=== PATIENT | male | born 1965 | race Caucasian/White ===

== ENCOUNTER → 2017-08-24 11:16 | Emergency (ER) | payer OTHER ==
[~2017-08-24 11:16] MED LIST: LORazepam INJ* 2 MG/ML 1 ML VIAL IV ONE; Meclizine TAB* 12.5 MG PO ONE; Ondansetron INJ* 2 MG/ML VIAL IV ONE
--- NOTE | 2017-08-24 12:32 | RAD ---
HISTORY: Weakness COMPARISONS: December 14, 2016 VIEWS: 1: frontal portable view of the chest at 12:11 PM FINDINGS: LINES AND TUBES: None. CARDIOMEDIASTINAL SILHOUETTE: The cardiomediastinal silhouette is normal for portable technique. PLEURA: The costophrenic angles are sharp. No pleural abnormalities are noted. LUNG PARENCHYMA: The lungs are clear. ABDOMEN: The upper abdomen is clear. There is no subphrenic gas. BONES AND SOFT TISSUES: No bone or soft tissue abnormalities are noted. IMPRESSION: NO ACTIVE CARDIOPULMONARY DISEASE.
[2017-08-24 12:38] LABS: Hematocrit 44 % (42-52); Mean Corpuscular HGB Conc 34 g/dl (31-36); Mean Corpuscular Hemoglobin 29 pg (27-31); Mean Corpuscular Volume 84 fL (80-94); Mean Platelet Volume 8 um3 (7.4-10.4); Red Blood Count 5.26 10^6/ul (4.0-5.4); Red Cell Distribution Width 13 % (10.5-15); White Blood Count 6.9 10^3/ul (3.5-10.8)
--- NOTE | 2017-08-24 12:40 | RAD ---
HISTORY: Vertigo COMPARISONS: None TECHNIQUE: Multiple contiguous axial CT scans were obtained of the head without intravenous contrast. FINDINGS: HEMORRHAGE/INFARCT: There is no hemorrhage or acute infarct. MASSES/SHIFT: There is no mass or shift. EXTRA-AXIAL SPACES: There are no extra-axial fluid collections. SULCI AND VENTRICLES: The sulci and ventricles are normal in size and position for the patient's stated age. CEREBRUM: There are no focal parenchymal abnormalities. BRAINSTEM: There are no focal parenchymal abnormalities. CEREBELLUM: There are no focal parenchymal abnormalities. VESSELS: The vessels are grossly normal. PARANASAL SINUSES: The paranasal sinuses are clear. ORBITS: The orbits are unremarkable. BONES AND SOFT TISSUE: No bone or soft tissue abnormalities are noted. OTHER: None IMPRESSION: NO ACUTE INTRACRANIAL PATHOLOGY.
[2017-08-24 12:54] LABS: Albumin 4.6 g/dL (3.2-5.2); BUN/Creatinine Ratio 11.7 (8-20); Calcium 9.9 mg/dL (8.6-10.3); EGFR African American 89.5 (>60); EGFR Non-African American 69.6 (>60); Globulin 2.6 g/dL (2-4); Magnesium 2.2 mg/dL (1.9-2.7); Potassium 4.2 mmol/L (3.5-5.0); Total Bilirubin 0.3 mg/dL (0.2-1.0); Total Protein 7.2 g/dL (6.4-8.9)
[2017-08-24] MEDS: NS 0.9% 1000 ML* 2,000 ML IV ONE (13:14)
[2017-08-24 13:22] LABS: TSH (Thyroid Stimulating Horm) 2.21 mcIU/mL (0.34-5.60)
[2017-08-24 13:45] LABS: Urine Bacteria Absent (Absent); Urine Bilirubin Negative (Negative); Urine Glucose Negative (Negative); Urine Nitrite Negative (Negative)
--- NOTE | 2017-08-24 14:39 | ED ---
Ro Burr Nilda, scribed for Antonio Novak MD on 08/24/17 at 1208 . Syncope/Near Syncope - HPI Summary HPI Summary: This patient is a 52 year old M presenting to [facility] with a chief complaint of near syncope (3x, lasting 3 minutes) while sitting at work today. The patient rates the pain 0/10 in severity. Symptoms aggravated by movement and alleviated by rest. During near-syncopal episodes patient states that he saw stars, knees felt like rubber, and that the room was spinning. Patient currently reports feeling tremulous and ringing in the ears. Patient denies SOB, palpitations, CP, abd pain, LE pain, back pain, neck pain, burning with urination, sinus pressure, and ear pain. The is present at 1430 and states the patient only ate one meal yesterday. He states he did not drink as much as he should have either. He has not been feeling ill otherwise. The patient denies change in speech, swallowing, denies focal weakness or numbness. - History Of Current Complaint Chief Complaint: EDDizziness Time Seen by Provider: 08/24/17 11:49 Hx Obtained From: Patient Onset/Duration: Sudden Onset, Resolved Timing: Constant Activity At Onset: At Rest Associated Head Trauma: No Aggravating Factor(s): Exertion Alleviating Factor(s): Rest Associated Signs And Symptoms: Other - states that he saw stars, knees felt like rubber, and that the room was spinning. Patient currently reports feeling tremulous and ringing in the ears. Patient denies SOB, palpitations, CP, abd pain, LE pain, back pain, burning w urination, sinus pressure, and ear pain. - Allergies/Home Medications Allergies/Adverse Reactions: Allergies Allergy/AdvReac Type Severity Reaction Status Date / Time No Known Allergies Allergy Verified 05/09/16 11:08 PMH/Surg Hx/FS Hx/Imm Hx Endocrine/Hematology History: Denies: Hx Diabetes, Hx Thyroid Disease Cardiovascular History: Reports: Hx Hypertension - stopped meds in 2013 but may need to revisit the issues Respiratory History: Denies: Hx Asthma, Hx Chronic Obstructive Pulmonary Disease (COPD) GI History: Denies: Hx Ulcer Musculoskeletal History: Reports: Hx Arthritis, Other Musculoskeletal History - DDD cervical and thoracic spine Neurological History: Reports: Other Neuro Impairments/Disorders - HX OF DDD - Surgical History Surgery Procedure, Year, and Place: Rhinoplasty. Tonsillectomy Infectious Disease History: No Infectious Disease History: Denies: Hx Clostridium Difficile, Hx Hepatitis, Hx Human Immunodeficiency Virus (HIV), Hx of Known/Suspected MRSA, Hx Shingles, Hx Tuberculosis, Hx Known/ Suspected VRE, Hx Known/Suspected VRSA, History Other Infectious Disease, Traveled Outside the [place] in Last 30 Days - Family History Known Family History: Positive: Cardiac Disease, Other - cancer - Social History Occupation: Employed Full-time Alcohol Use: Rare Substance Use Type: Reports: None Smoking Status (MU): Current Every Day Smoker Type: Smokeless Tobacco Amount Used/How Often: 1/2 tin per day Review of Systems Positive: Other - ringing in ears; negative ear pain, sinus pressure Negative: Palpitations, Chest Pain Negative: Shortness Of Breath Negative: Abdominal Pain Negative: burning Positive: Other - knees weak, tremulous;negative LE pain, back pain, neck pain Neurological: Other - room spinning, saw stars Positive: Syncope - near syncope All Other Systems Reviewed And Are Negative: Yes Physical Exam Triage Information Reviewed: Yes Vital Signs On Initial Exam: Initial Vitals Temp Pulse Resp BP Pulse Ox 97.5 F 95 17 150/93 95 08/24/17 11:19 08/24/17 11:19 08/24/17 11:19 08/24/17 11:19 08/24/17 11:19 Vital Signs Reviewed: Yes Appearance: Positive: Well-Appearing, No Pain Distress Skin: Positive: Warm, Skin Color Reflects Adequate Perfusion Head/Face: Positive: Normal Head/Face Inspection Eyes: Positive: EOMI ENT: Positive: Pharynx normal Respiratory/Lung Sounds: Positive: Clear to Auscultation, Breath Sounds Present Cardiovascular: Positive: RRR. Negative: Murmur Abdomen Description: Positive: Nontender Musculoskeletal: Positive: Strength/ROM Intact Neurological: Positive: Sensory/Motor Intact, Alert, Oriented to Person Place, Time, CN Intact II-III, Normal Gait, Finger to Nose - nml, Speech Normal, Other - with position change the patient gets vertigo, but no nystagmus seen Psychiatric: Positive: Anxious - Eladio Coma Scale Coma Scale Total: 15 Diagnostics - Vital Signs Vital Signs Temp Pulse Resp BP Pulse Ox 08/24/17 11:19 97.5 F 95 17 150/93 95 - Laboratory Result Diagrams: 08/24/17 12:20 08/24/17 12:20 Lab Statement: Any lab studies that have been ordered have been reviewed, and results considered in the medical decision making process. - Radiology CXR Radiology Interpretation Completed By: Radiologist - CXR, per radiologist, reveals no active cardiopulmonary disease. ED physician has reviewed this report and agrees. - CT Brain CT Interpretation Completed By: Radiologist - CT Brain, per radiologist, reveals no acute intracranial pathology. ED physician has reviewed this radiology report and agrees. - EKG 1232 Cardiac Rate: NL EKG Rhythm: Sinus Rhythm - 96 bpm EKG Interpretation: nl HI, QRS, QT, T wave flat EKG Comparison: No Significant Change - compared to 07/30/15 Re-Evaluation - Re-Evaluation First Eval Re-Evaluation Time: 14:36 Change: Improved Comment: The patient reports he feelsmuch better. He is able to change positions without having the room spin now, and he is walking ot bathroom after meclizine and hydration. he is feeling much better and states he is ready to go home. Course/Dx Assessment/Plan: This patient is a 52 year old M presenting to [facility] with a chief complaint of near syncope (3x, lasting 3 minutes) while sitting at work today. The patient rates the pain 0/10 in severity. Symptoms aggravated by movement and alleviated by rest. During near-syncopal episodes patient states that he saw stars, knees felt like rubber, and that the room was spinning. Patient currently reports feeling tremulous and ringing in the ears. Patient denies SOB, palpitations, CP, abd pain, LE pain, back pain, neck pain, burning with urination, sinus pressure, and ear pain. Pending EKG, CXR, CT Brain, and labs. CXR and CT Brain, per radiologist, reveal NAD. An EKG reveals NSR 96 bpm, nl HI, QRS, QT, T wave flat, unchanged compared to 07/30/15. - Diagnoses Provider Diagnoses: Vertigo, Orthostasis Discharge - Discharge Plan Condition: Good Disposition: HOME Prescriptions: Meclizine HCl [Meclizine 25] 25 mg PO BID #14 tab Patient Education Materials: Dehydration (ED), Vertigo (ED), Hypertension (ED) Referrals: Thang Diaz MD [Primary Care Provider] - 2 Days The documentation as recorded by the scribe, Starr,Zenaida accurately reflects the service I personally performed and the decisions made by me, Antonio Novak MD.
[2017-08-24 14:52] VITALS: BP 138/80
== END | disposition home or self-care (01) ==
LOC: ED 11:16
DX: R42 Dizziness and giddiness (principal); I95.1 Orthostatic hypotension; R55 Syncope and collapse
CPT/HCPCS: 36415; 70450; 71010; 80053; 81003; 81015; 83605; 83735; 83880; 84443; 84484; 85025; 93005; 96374; 96375; 99282; A9270-GY; J2060; J2405

== ENCOUNTER 2017-11-06 10:24 | Emergency (ER) | payer OTHER ==
[2017-11-06] MEDS ORDERED: Aspirin Low Dose CHEW TAB* 81 MG PO ONE (10:59)
[2017-11-06 11:21] LABS: ABS Basophils 0.1 10^3/ul (0-0.2); ABS Eosinophils 0.2 10^3/ul (0-0.6); ABS Lymphocytes 1.2 10^3/ul (1.0-4.8); ABS Monocytes 0.4 10^3/ul (0-0.8); ABS Neutrophils 3.2 10^3/ul (1.5-7.7); ABS Nucleated RBC 0 10^3/ul; Eosinophil % 3.3 % (0-6); Hematocrit 37 % (42-52); Hemoglobin 12.5 g/dl (14.0-18.0); Lymphocyte % 23.7 % (25-47); Mean Corpuscular HGB Conc 34 g/dl (31-36); Mean Corpuscular Hemoglobin 28 pg (27-31); Mean Corpuscular Volume 82 fL (80-94); Mean Platelet Volume 8 um3 (7.4-10.4); Nucleated Red Blood Cells % 0; Platelet Count 213 10^3/ul (150-450); Red Blood Count 4.48 10^6/ul (4.0-5.4); Red Cell Distribution Width 14 % (10.5-15)
--- NOTE | 2017-11-06 11:25 | RAD ---
INDICATION: Chest pain COMPARISON: August 24, 2017 TECHNIQUE: An AP portable view obtained at 1115 hours is submitted. FINDINGS: Bones/Soft Tissues: There are no acute bony findings. Cardiomediastinal: The cardiomediastinal silhouette is normal. Lungs: There are no infiltrates. Pleura: There are no pleural effusions. Other: None IMPRESSION: NO ACTIVE DISEASE.
[2017-11-06 11:37] LABS: INR 0.9 (0.77-1.02)
[2017-11-06 11:43] LABS: EGFR Non-African American 75.8 (>60)
--- NOTE | 2017-11-06 12:56 | RAD ---
INDICATION: Headaches. Weakness. COMPARISON: None TECHNIQUE: Noncontrast axial source images were acquired from the skull base to the vertex. FINDINGS: Ventricles/sulci: The ventricles and cisterns are normal in size and configuration for age. Brain parenchyma: There is no focal parenchymal finding, evidence of intracranial mass, or intracranial mass effect. Intracranial hemorrhage:None. Extra-axial spaces: There are no abnormal extra axial fluid collections or evidence of extra-axial mass. Calvarium: There is no calvarial fracture or other calvarial abnormality. Scalp: There is no evidence of scalp or extracalvarial soft tissue abnormality. Paranasal sinuses/mastoid: The paranasal sinuses and mastoid air cells are clear. Other: None. IMPRESSION: No acute intracranial findings
[2017-11-06 14:03] VITALS: BP 131/91
--- NOTE | 2017-11-07 10:54 | ED ---
Rowena Burr Edward, scribed for Antonio Arteaga MD on 11/06/17 at 1143 . HPI Chest Pain - HPI Summary HPI Summary: 52 y/o male presents to the ED c/o "gripping" pain at the R side of his chest that lasted minutes, that resolved, around 2 days ago. Currently the pt c/o R shoulder pain. Pt also c/o intermittent dizzy spells that have been going on for around 1 month. During these spells the pt's R eye would become blurry ( this occurred twice). - History of Current Complaint Chief Complaint: EDChestPainROMI Time Seen by Provider: 11/06/17 11:30 Hx Obtained From: Patient Onset/Duration: Started Days Ago, Resolved Timing: Lasting Minutes Pain Intensity: 6 Pain Scale Used: 0-10 Numeric Chest Pain Location: Right Lateral Character: Other: - gripping Aggravating Factor(s): Nothing Alleviating Factor(s): Nothing Associated Signs and Symptoms: Positive: Chest Pain, Dizziness, Other: - blurred vision - Allergy/Home Medications Allergies/Adverse Reactions: Allergies Allergy/AdvReac Type Severity Reaction Status Date / Time No Known Allergies Allergy Verified 11/06/17 10:28 PMH/Surg Hx/FS Hx/Imm Hx Previously Healthy: No Endocrine/Hematology History: Denies: Hx Diabetes, Hx Thyroid Disease Cardiovascular History: Reports: Hx Hypertension - stopped meds in 2013 but may need to revisit the issues Respiratory History: Denies: Hx Asthma, Hx Chronic Obstructive Pulmonary Disease (COPD) GI History: Denies: Hx Ulcer Musculoskeletal History: Reports: Hx Arthritis, Other Musculoskeletal History - DDD cervical and thoracic spine Neurological History: Reports: Other Neuro Impairments/Disorders - HX OF DDD - Surgical History Surgery Procedure, Year, and Place: Rhinoplasty. Tonsillectomy Infectious Disease History: No Infectious Disease History: Denies: Hx Clostridium Difficile, Hx Hepatitis, Hx Human Immunodeficiency Virus (HIV), Hx of Known/Suspected MRSA, Hx Shingles, Hx Tuberculosis, Hx Known/ Suspected VRE, Hx Known/Suspected VRSA, History Other Infectious Disease, Traveled Outside the [place] in Last 30 Days - Family History Known Family History: Positive: Cardiac Disease, Other - cancer - Social History Alcohol Use: Rare Substance Use Type: Reports: None Smoking Status (MU): Former Smoker Type: Smokeless Tobacco Amount Used/How Often: 1/2 tin per day Review of Systems Constitutional: Negative Positive: Blurred Vision - R eye ENT: Negative Positive: Chest Pain Respiratory: Negative Gastrointestinal: Negative Genitourinary: Negative Positive: Arthralgia - R shoulder pain Skin: Negative Neurological: Other - Dizziness Psychological: Normal All Other Systems Reviewed And Are Negative: Yes Physical Exam - Summary Physical Exam Summary: VITAL SIGNS: Reviewed. GENERAL: Patient is a well-developed and nourished male who is lying comfortable in the stretcher. Patient is not in any acute respiratory distress. HEAD AND FACE: No signs of trauma. No ecchymosis, hematomas or skull depressions. No sinus tenderness. EYES: PERRLA, EOMI x 2, No injected conjunctiva, no nystagmus. No photophobia. EARS: Hearing grossly intact. Ear canals and tympanic membranes are within normal limits. MOUTH: Oropharynx within normal limits. NECK: Supple, trachea is midline, no adenopathy, no JVD, no carotid bruit, no c- spine tenderness, neck with full ROM. No meningeal signs, no Kernig's or brudzinskis signs. CHEST: Symmetric, no tenderness at palpation LUNGS: Clear to auscultation bilaterally. No wheezing or crackles. CVS: Regular rate and rhythm, S1 and S2 present, no murmurs or gallops appreciated. ABDOMEN: Soft, non-tender. No signs of distention. No rebound no guarding, and no masses palpated. Bowel sounds are normal. EXTREMITIES: FROM in all major joints, no edema, no cyanosis or clubbing. NEURO: Alert and oriented x 3. No acute neurological deficits. Speech is normal and follows commands. SKIN: Dry and warm GCS: 15 (unless he states otherwise) Triage Information Reviewed: Yes Vital Signs On Initial Exam: Initial Vitals Temp Pulse Resp BP Pulse Ox 98.4 F 104 16 174/95 92 11/06/17 10:28 11/06/17 10:28 11/06/17 10:11/06/17 10:11/06/17 10:28 Vital Signs Reviewed: Yes Diagnostics - Vital Signs Vital Signs Temp Pulse Resp BP Pulse Ox 11/06/17 10:46 94 23 98 11/06/17 10:44 144/90 11/06/17 10:28 98.4 F 104 16 174/95 92 - Laboratory Lab Results: Lab Results 11/06/17 Range/Units 11:08 WBC 5.0 (3.5-10.8) 10^3/ul RBC 4.48 (4.0-5.4) 10^6/ul Hgb 12.5 L (14.0-18.0) g/dl Hct 37 L (42-52) % MCV 82 (80-94) fL MCH 28 (27-31) pg MCHC 34 (31-36) g/dl RDW 14 (10.5-15) % Plt Count 213 (150-450) 10^3/ul MPV 8 (7.4-10.4) um3 Neut % (Auto) 64.3 (38-83) % Lymph % (Auto) 23.7 L (25-47) % [place] % (Auto) 7.5 (1-9) % Eos % (Auto) 3.3 (0-6) % Baso % (Auto) 1.2 (0-2) % Absolute Neuts (auto) 3.2 (1.5-7.7) 10^3/ul Absolute Lymphs (auto) 1.2 (1.0-4.8) 10^3/ul Absolute Monos (auto) 0.4 (0-0.8) 10^3/ul Absolute Eos (auto) 0.2 (0-0.6) 10^3/ul Absolute Basos (auto) 0.1 (0-0.2) 10^3/ul Absolute Nucleated RBC 0 10^3/ul Nucleated RBC % 0 Result Diagrams: 11/06/17 11:08 11/06/17 11:08 Lab Statement: Any lab studies that have been ordered have been reviewed, and results considered in the medical decision making process. - Radiology CXR Xray Interpretation: No Acute Changes Radiology Interpretation Completed By: Radiologist - ED PHYSICIAN REVIEWS AND AGREES - CT BRAIN CT CT Interpretation: No Acute Changes CT Interpretation Completed By: Radiologist - EKG 1 EKG Interpretation: 10:32 - SR @ 96 BPM. Normal Smith. No STEMI. Chest Pain Course/Dx - Course Assessment/Plan: 52 y/o male presents to the ED c/o c/o "gripping" pain at the R side of his chest lasting minutes, that resolved, around 2 days ago. Currently the pt c/o R shoulder pain.Pt also c/o dizzy spells for around 1 month. During these spells the pt's R eye would become blurry (this occurred twice). CXR NEGATIVE. EKG - 10:32 - SR @ 96 BPM. Normal Smith. No STEMI. BRAIN CT negative. Test results are without significant abnormalities. Trop 1 and 2 negative. Therefore I have no suspicion for ACS. Head CT is negative. I did a head ct b/c she reported to have visual disturbances. Therefore the pt will be d /c home with f/u with pcp. The pt is hemodynamically stable, A&Ox3. - Chest Pain Differential Diagnosis/HQI/PQRI: Acute NV, ACS, Angina, CHF, Chest Wall, GI Disease - Diagnoses Provider Diagnoses: Atypical chest pain Discharge - Discharge Plan Condition: Stable Disposition: HOME Patient Education Materials: Chest Pain (ED) Referrals: Thang Diaz MD [Primary Care Provider] - 4 Days (PLEASE F/U IN 3-5 DAYS) The documentation as recorded by the Rowena dickinson Edward accurately reflects the service I personally performed and the decisions made by Chandler winn Walter, MD.
== END 2017-11-06 14:32 | disposition home or self-care (01) ==
LOC: ED 10:24
DX: R07.89 Other chest pain (principal); Z87.891 Personal history of nicotine dependence; I10 Essential (primary) hypertension
CPT/HCPCS: 36415; 70450; 71045; 80053; 82550; 82553; 83605; 83735; 83874; 83880; 84484; 85025; 85610; 85730; 87040; 93005; 99283; A9270-GY

== ENCOUNTER 2017-11-16 09:45 | Emergency (ER) | payer OTHER ==
[2017-11-16] MEDS ORDERED: NS 0.9% 1000 ML* 1,000 ML IV ONE (10:34)
[2017-11-16 11:21] LABS: ABS Basophils 0.1 10^3/ul (0-0.2); ABS Eosinophils 0.1 10^3/ul (0-0.6); ABS Lymphocytes 1.2 10^3/ul (1.0-4.8); ABS Monocytes 0.5 10^3/ul (0-0.8); ABS Neutrophils 4.4 10^3/ul (1.5-7.7); ABS Nucleated RBC 0 10^3/ul; Eosinophil % 1.7 % (0-6); Hematocrit 37 % (42-52); Hemoglobin 12.4 g/dl (14.0-18.0); Lymphocyte % 18.8 % (25-47); Mean Corpuscular HGB Conc 34 g/dl (31-36); Mean Corpuscular Hemoglobin 27 pg (27-31); Mean Corpuscular Volume 81 fL (80-94); Mean Platelet Volume 7 um3 (7.4-10.4); Nucleated Red Blood Cells % 0; Platelet Count 231 10^3/ul (150-450); Red Blood Count 4.57 10^6/ul (4.0-5.4); Red Cell Distribution Width 14 % (10.5-15); White Blood Count 6.3 10^3/ul (3.5-10.8)
--- NOTE | 2017-11-16 11:26 | RAD ---
Indication: RIGHT upper quadrant pain. Nausea, diarrhea. Comparison: December 29, 2014 CT. Technique: RIGHT upper quadrant ultrasound. Report: Appropriate direction flow documented in the portal and hepatic veins. 16.9 cm liver is increased in echogenicity. 3.5 x 3.8 x 3.8 cm irregular contour anechoic lesion devoid of intrinsic vascularity at the LEFT lateral hepatic segment is unchanged compared with the prior CT consistent with a benign cyst. No suspicious focal hepatic lesions evident. Negative for intrahepatic biliary dilatation. 4.0 mm common bile duct. Adequately distended gallbladder with normal 2.6 mm wall is without pathologic finding. Negative for sonographic Hernandez's sign. The pancreatic tail is partially obscured due to bowel gas with the visualized pancreas unremarkable. Negative for ascites. 10.3 x 5.1 x 5.0 cm RIGHT kidney is unremarkable. IMPRESSION: 1. Hepatic steatosis. Benign cyst at the LEFT lateral hepatic segment. 2. Negative for gallbladder pathology or biliary dilatation.
[2017-11-16 11:35] LABS: EGFR Non-African American 80.3 (>60)
--- NOTE | 2017-11-16 11:43 | RAD ---
INDICATION: Cough right-sided chest pain. COMPARISON: Comparison is made with the prior study from November 06, 2017. TECHNIQUE: Dual-energy PA and lateral views of the chest were obtained. FINDINGS: The heart is within normal limits in size. Mediastinal and hilar contours appear within normal limits. The lungs are underinflated. There are linear densities at the left lung base most consistent with atelectasis. The lungs are otherwise clear. No pleural effusion is seen. IMPRESSION: LEFT BASILAR SUBSEGMENTAL ATELECTASIS. THE LUNGS ARE OTHERWISE CLEAR.
[2017-11-16] MEDS ORDERED: Ondansetron INJ* 2 MG/ML VIAL IV ONE (13:02)
[2017-11-16 13:12] LABS: Urine Appearance Clear; Urine Blood Negative (Negative); Urine Color Straw; Urine Ketones Negative (Negative); Urine Protein Negative (Negative); Urine Specific Gravity 1.005 (1.010-1.030); Urine Urobilinogen Negative (Negative)
--- NOTE | 2017-11-16 14:27 | ED ---
Julisa Burr Julia, scribed for Malachi Salas MD on 11/16/17 at 1016 . Abdominal Pain/Male - HPI Summary HPI Summary: This patient is a 52 year old M presenting to [facility] with a chief complaint of abdominal pain with n/v/d since last night at midnight with R sided chest pain. Patient reports productive cough with yellow mucous for a week. Patient denies abdominal pain and fever. The patient rates the pain 2/10 in severity. Pt reports hx of interrmittent blurred vision in R eye with dizziness. Patient has history of PTSD and panic attacks. Pt was seen in ED last week for similar chest pain. Pt has multiple sick contacts. - History of Current Complaint Chief Complaint: EDNauseaVomitDiarrh Stated Complaint: N/V/PAIN IN RT CHEST Hx Obtained From: Patient Onset/Duration: Lasting Hours Timing: Constant Pain Intensity: 2 Pain Scale Used: 0-10 Numeric Radiates to: Other - R sided chest Associated Signs And Symptoms: Positive: Nausea, Vomiting, Diarrhea - Allergies/Home Medications Allergies/Adverse Reactions: Allergies Allergy/AdvReac Type Severity Reaction Status Date / Time No Known Allergies Allergy Verified 11/06/17 10:28 PMH/Surg Hx/FS Hx/Imm Hx Endocrine/Hematology History: Denies: Hx Diabetes, Hx Thyroid Disease Cardiovascular History: Reports: Hx Angina, Hx Hypertension - stopped meds in 2013 but may need to revisit the issues Respiratory History: Denies: Hx Asthma, Hx Chronic Obstructive Pulmonary Disease (COPD) GI History: Denies: Hx Ulcer Musculoskeletal History: Reports: Hx Arthritis, Hx Scoliosis, Other Musculoskeletal History - DDD cervical and thoracic spine Neurological History: Reports: Other Neuro Impairments/Disorders - HX OF DDD - Surgical History Surgery Procedure, Year, and Place: Rhinoplasty. Tonsillectomy Infectious Disease History: No Infectious Disease History: Denies: Hx Clostridium Difficile, Hx Hepatitis, Hx Human Immunodeficiency Virus (HIV), Hx of Known/Suspected MRSA, Hx Shingles, Hx Tuberculosis, Hx Known/ Suspected VRE, Hx Known/Suspected VRSA, History Other Infectious Disease, Traveled Outside the [place] in Last 30 Days - Family History Known Family History: Positive: Cardiac Disease, Other - cancer - Social History Alcohol Use: Rare Substance Use Type: Reports: None Smoking Status (MU): Former Smoker Type: Smokeless Tobacco Amount Used/How Often: 1/2 tin per day Review of Systems Positive: Fever Positive: Chest Pain - r sided Positive: Cough Positive: Vomiting, Diarrhea, Nausea. Negative: Abdominal Pain All Other Systems Reviewed And Are Negative: Yes Physical Exam - Summary Physical Exam Summary: Appearance: Well-appearing, Well-nourished Skin: Warm, Dry, No rash Eyes: Normal, PERRL, EOMI, sclera anicteric ENT: Normal, non hemorrhagic, no exudates, R endoscopic exam is normal Neck: Supple, nontender Respiratory: Clear to auscultation Cardiovascular: S1, S2, no murmur, no rub, no gallop Abdomen: Soft, RUQ tenderness, no organomegaly Bowel sounds: Present Musculoskeletal: Normal, Strength/ROM Intact, no edema, pulses symmetrical Neurological: Normal, A&Ox3, cranial nerves II-XII WNL, follows commands, gait not tested, sensation intact to pin and light touch Psychiatric: affect normal slightly anixous, dressed appropriately, judgment intact, Triage Information Reviewed: Yes Vital Signs On Initial Exam: Initial Vitals Temp Pulse Resp BP Pulse Ox 97.5 F 100 20 150/96 97 11/16/17 09:50 11/16/17 09:50 11/16/17 09:50 11/16/17 09:50 11/16/17 09:50 Vital Signs Reviewed: Yes Diagnostics - Vital Signs Vital Signs Temp Pulse Resp BP Pulse Ox 11/16/17 09:50 97.5 F 100 20 150/96 97 - Laboratory Lab Results: Lab Results 11/16/17 11/16/17 11/16/17 Range/Units 10:57 11:10 11:10 WBC 6.3 (3.5-10.8) 10^3/ul RBC 4.57 (4.0-5.4) 10^6/ul Hgb 12.4 L (14.0-18.0) g/dl Hct 37 L (42-52) % MCV 81 (80-94) fL MCH 27 (27-31) pg MCHC 34 (31-36) g/dl RDW 14 (10.5-15) % Plt Count 231 (150-450) 10^3/ul MPV 7 L (7.4-10.4) um3 Neut % (Auto) 70.9 (38-83) % Lymph % (Auto) 18.8 L (25-47) % [place] % (Auto) 7.6 (1-9) % Eos % (Auto) 1.7 (0-6) % Baso % (Auto) 1.0 (0-2) % Absolute Neuts (auto) 4.4 (1.5-7.7) 10^3/ul Absolute Lymphs (auto) 1.2 (1.0-4.8) 10^3/ul Absolute Monos (auto) 0.5 (0-0.8) 10^3/ul Absolute Eos (auto) 0.1 (0-0.6) 10^3/ul Absolute Basos (auto) 0.1 (0-0.2) 10^3/ul Absolute Nucleated RBC 0 10^3/ul Nucleated RBC % 0 Sodium 134 (133-145) mmol/L Potassium 4.2 (3.5-5.0) mmol/L Chloride 101 (101-111) mmol/L Carbon Dioxide 27 (22-32) mmol/L Anion Gap 6 (2-11) mmol/L BUN 13 (6-24) mg/dL Creatinine 0.98 (0.67-1.17) mg/dL Est GFR ( Amer) 103.3 (>60) Est GFR (Non-Af Amer) 80.3 (>60) BUN/Creatinine Ratio 13.3 (8-20) Glucose 110 H (70-100) mg/dL Calcium 9.6 (8.6-10.3) mg/dL Total Bilirubin 0.30 (0.2-1.0) mg/dL AST 15 (13-39) U/L ALT 21 (7-52) U/L Alkaline Phosphatase 160 H (34-104) U/L Total Protein 6.9 (6.4-8.9) g/dL Albumin 4.4 (3.2-5.2) g/dL Globulin 2.5 (2-4) g/dL Albumin/Globulin Ratio 1.8 (1-3) Lipase 37 (11.0-82.0) U/L Urine Color Urine Appearance Urine pH (5-9) Ur Specific [place] (1.010-1.030) Urine Protein (Negative) Urine Ketones (Negative) Urine Blood (Negative) Urine Nitrate (Negative) Urine Bilirubin (Negative) Urine Urobilinogen (Negative) Ur Leukocyte Esterase (Negative) Urine Glucose (Negative) Influenza A (Rapid) Negative (Negative) Influenza B (Rapid) Negative (Negative) 11/16/17 Range/Units 12:53 WBC (3.5-10.8) 10^3/ul RBC (4.0-5.4) 10^6/ul Hgb (14.0-18.0) g/dl Hct (42-52) % MCV (80-94) fL MCH (27-31) pg MCHC (31-36) g/dl RDW (10.5-15) % Plt Count (150-450) 10^3/ul MPV (7.4-10.4) um3 Neut % (Auto) (38-83) % Lymph % (Auto) (25-47) % [place] % (Auto) (1-9) % Eos % (Auto) (0-6) % Baso % (Auto) (0-2) % Absolute Neuts (auto) (1.5-7.7) 10^3/ul Absolute Lymphs (auto) (1.0-4.8) 10^3/ul Absolute Monos (auto) (0-0.8) 10^3/ul Absolute Eos (auto) (0-0.6) 10^3/ul Absolute Basos (auto) (0-0.2) 10^3/ul Absolute Nucleated RBC 10^3/ul Nucleated RBC % Sodium (133-145) mmol/L Potassium (3.5-5.0) mmol/L Chloride (101-111) mmol/L Carbon Dioxide (22-32) mmol/L Anion Gap (2-11) mmol/L BUN (6-24) mg/dL Creatinine (0.67-1.17) mg/dL Est GFR ( Amer) (>60) Est GFR (Non-Af Amer) (>60) BUN/Creatinine Ratio (8-20) Glucose (70-100) mg/dL Calcium (8.6-10.3) mg/dL Total Bilirubin (0.2-1.0) mg/dL AST (13-39) U/L ALT (7-52) U/L Alkaline Phosphatase (34-104) U/L Total Protein (6.4-8.9) g/dL Albumin (3.2-5.2) g/dL Globulin (2-4) g/dL Albumin/Globulin Ratio (1-3) Lipase (11.0-82.0) U/L Urine Color Straw Urine Appearance Clear Urine pH 7.0 (5-9) Ur Specific [place] 1.005 L (1.010-1.030) Urine Protein Negative (Negative) Urine Ketones Negative (Negative) Urine Blood Negative (Negative) Urine Nitrate Negative (Negative) Urine Bilirubin Negative (Negative) Urine Urobilinogen Negative (Negative) Ur Leukocyte Esterase Negative (Negative) Urine Glucose Negative (Negative) Influenza A (Rapid) (Negative) Influenza B (Rapid) (Negative) Result Diagrams: 11/16/17 11:10 11/16/17 11:10 Lab Statement: Any lab studies that have been ordered have been reviewed, and results considered in the medical decision making process. - Radiology CXR Radiology Interpretation Completed By: Radiologist - LEFT BASILAR SUBSEGMENTAL ATELECTASIS. THE LUNGS ARE OTHERWISE CLEAR. ED Physician has reviewed this report. - Additional Comments Diagnostic Additional Comments: A Gallbladder US reveals 1. Hepatic steatosis. Benign cyst at the LEFT lateral hepatic segment. 2. Negative for gallbladder pathology or biliary dilatation. ED Physician has reviewed this report. Abdominal Pain Fem Course/Dx - Course Course Of Treatment: This patient presents with abdominal pain with n/v/d with R sided chest pain. Patient reports productive cough with yellow mucous for a week. . Patient has history of PTSD and panic attacks. Pt was seen in ED last week for similar chest pain. CXR reveals no acute concern. Gallbladder US is unremarkable. Flu swab is negative. Bloodwork is unremarkable. Pt given Zofran due to complaints of dizziness. - Diagnoses Provider Diagnoses: Gastritis due to nonsteroidal anti-inflammatory drug (NSAID) Discharge - Discharge Plan Condition: Good Disposition: HOME Discharge Disposition Comment: home Prescriptions: Ondansetron ODT TAB* [Zofran 4 MG Odt TAB*] 4 mg PO Q6H PRN #20 tab.odt MDD 4 PRN Reason: Nausea/Vomiting Patient Education Materials: Gastritis (DC) Referrals: Thang Diaz MD [Primary Care Provider] - The documentation as recorded by the Julisa dickinson Julia accurately reflects the service I personally performed and the decisions made by me, Malachi Salas MD.
[2017-11-16 14:58] VITALS: BP 138/87
== END 2017-11-16 14:57 | disposition home or self-care (01) ==
LOC: ED 09:45
DX: K29.70 Gastritis, unspecified, without bleeding (principal); R11.2 Nausea with vomiting, unspecified; Z87.891 Personal history of nicotine dependence
CPT/HCPCS: 36415; 71046; 76705; 80053; 81003; 83690; 85025; 87502; 96374; 99283; J2405

== ENCOUNTER 2018-04-09 14:47 | Emergency (ER) | payer OTHER ==
[2018-04-09] MEDS ORDERED: NS 0.9% 1000 ML* 1,000 ML IV ONE (15:20)
[2018-04-09] MEDS ORDERED: Ketorolac INJ* 30 MG/ML 1 ML VIAL IV ONE (15:20)
[2018-04-09] MEDS ORDERED: Acetaminophen TAB* 325 MG PO ONE (15:20)
--- NOTE | 2018-04-09 15:57 | RAD ---
Indication: Headache. CT of the brain was performed without IV contrast. Ventricular structures are midline. No midline shift is noted. The extra-axial spaces are unremarkable. There is no evidence of intracranial mass or hemorrhage. No other high or low density lesions are identified. Mastoid air cells and paranasal sinuses are otherwise unremarkable. No changes noted since previous exam November 06, 2017. IMPRESSION: There is no evidence of intracranial mass or hemorrhage is noted.
--- NOTE | 2018-04-09 15:59 | RAD ---
Indication: Neck pain. CT of the cervical spine was obtained in the axial plane. Sagittal and coronal reconstructed images were obtained. Mastoid air cells and paranasal sinuses are unremarkable. Degenerative changes of the atlantoaxial joint is noted. Vertebral bodies appear normal in height. Straightening of the normal lordosis is noted. At C2-C3 and C3-C4 there is no disc protrusion. No central foraminal stenosis is noted. At C4-C5 no focal protrusion is noted. No central foraminal stenosis noted. At C5-C6 spondylitic ridge flattens the thecal sac. Right uncovertebral joint hypertrophy narrows the right foramen. At C6-C7 and C7-T1 the disc space appears normal. IMPRESSION: No fracture noted. Degenerative disc disease noted at C5-C6. Right uncovertebral joint hypertrophy narrows the right foramen.
[2018-04-09] MEDS ORDERED: Morphine VIAL* 4 MG/ML VIAL (1 ml vial) IV ONE (16:33)
[2018-04-09] MEDS ORDERED: Ondansetron INJ* 2 MG/ML VIAL IV ONE (16:33)
--- NOTE | 2018-04-09 16:39 | ED ---
Elle Burr SooYoung, scribed for Ras Coker MD on 04/09/18 at 1517 . Neck Pain - HPI Summary HPI Summary: A 53 y/o M presents to ED with c/o acute on chronic neck pain, worsening yesterday afternoon. Pt went to [facility], where he received a steroid shot. Associated sx: JACKSON. Cold compress, massage chair did not alleviate the neck pain. Pt is a . Pert PMHx: PTSD, 20% disability of neck. Pt is waiting for imaging and lab results from his PCP and a nuero referral, scheduled to see PCP on April 26. EMG test In October at [place]. Pt takes pain medication for his lower back. - History of Current Complaint Chief Complaint: EDNeckComplaint Stated Complaint: HEADACHE/NECK PAIN Time Seen by Provider: 04/09/18 15:05 Hx Obtained From: Patient Timing: Constant, Lasting Hours Onset/Duration: Started days ago - yesterday, acute on chronic, Still Present Severity Currently: Severe Pain Intensity: 8 Pain Scale Used: 0-10 Numeric Associated Signs & Symptoms: Positive: Headache - Allergies/Home Medications Allergies/Adverse Reactions: Allergies Allergy/AdvReac Type Severity Reaction Status Date / Time No Known Allergies Allergy Verified 04/09/18 14:56 Home Medications: Home Medications Carisoprodol TAB* [Soma TAB*] 350 mg PO Q6H PRN 04/09/18 [History Confirmed 10/27] Escitalopram Oxalate [Lexapro] 20 mg PO DAILY 04/09/18 [History Confirmed ] Ranitidine TAB (NF) [Zantac TAB (NF)] 150 mg PO DAILY 04/09/18 [History Confirmed 04/09/18] amLODIPine TAB* [Norvasc 5 mg TAB*] 10 mg PO DAILY 04/09/18 [History Confirmed 04/09/18] PMH/Surg Hx/FS Hx/Imm Hx Previously Healthy: No Endocrine/Hematology History: Denies: Hx Diabetes, Hx Thyroid Disease Cardiovascular History: Reports: Hx Angina, Hx Hypertension - stopped meds in 2013 but may need to revisit the issues Respiratory History: Denies: Hx Asthma, Hx Chronic Obstructive Pulmonary Disease (COPD) GI History: Denies: Hx Ulcer Musculoskeletal History: Reports: Hx Arthritis, Hx Scoliosis, Other Musculoskeletal History - DDD cervical and thoracic spine Neurological History: Reports: Other Neuro Impairments/Disorders - HX OF DDD Psychiatric History: Reports: Hx Post Traumatic Stress Disorder - Surgical History Surgery Procedure, Year, and Place: Rhinoplasty. Tonsillectomy Infectious Disease History: No Infectious Disease History: Denies: Hx Clostridium Difficile, Hx Hepatitis, Hx Human Immunodeficiency Virus (HIV), Hx of Known/Suspected MRSA, Hx Shingles, Hx Tuberculosis, Hx Known/ Suspected VRE, Hx Known/Suspected VRSA, History Other Infectious Disease, Traveled Outside the [place] in Last 30 Days - Family History Known Family History: Positive: Cardiac Disease, Other - cancer - Social History Occupation: Employed Full-time Lives: With Family Alcohol Use: Rare Hx Substance Use: No Substance Use Type: Reports: None Hx Tobacco Use: Yes Smoking Status (MU): Former Smoker Type: Smokeless Tobacco Amount Used/How Often: 1/2 tin per day Review of Systems Negative: Fever Positive: Arthralgia - neck pain Positive: Headache All Other Systems Reviewed And Are Negative: Yes Physical Exam - Summary Physical Exam Summary: General: well-appearing, moderate pain distress Skin: warm, color reflects adequate perfusion, dry Head: normal Eyes: EOMI, TARA ENT: normal Neck: supple, nontender Respiratory: CTA, breath sounds present Cardiovascular: RRR Abdomen: soft, nontender Bowel: present Musculoskeletal: tenderness to low neck, strength/ROM intact Neurological: sensory/motor intact, A&O x3 Psychological: affect/mood appropriate Triage Information Reviewed: Yes Vital Signs On Initial Exam: Initial Vitals Temp Pulse Resp BP Pulse Ox 98.2 F 109 18 133/93 93 04/09/18 14:56 04/09/18 14:56 04/09/18 14:56 04/09/18 14:56 04/09/18 14:56 Vital Signs Reviewed: Yes Diagnostics - Vital Signs Vital Signs Temp Pulse Resp BP Pulse Ox 04/09/18 14:56 98.2 F 109 18 133/93 93 - Laboratory Lab Statement: Any lab studies that have been ordered have been reviewed, and results considered in the medical decision making process. - CT C-SPINE CT Interpretation: No Acute Changes - IMPRESSION: No fracture noted. Degenerative disc disease noted at C5-C6. Right uncovertebral joint hypertrophy narrows the right foramen. ED physician has reviewed this report and agrees. CT Interpretation Completed By: Radiologist BRAIN CT Interpretation: No Acute Changes - IMPRESSION: There is no evidence of intracranial mass or hemorrhage is noted. ED physician has reviewed this report and agrees. CT Interpretation Completed By: Radiologist Re-Evaluation - Re-Evaluation 1 Re-Evaluation Time: 16:30 Change: Improved Comment: Pain is slightly decreased after pain medication. There is no neuro deficit. Neck Course/Dx - Course Course Of Treatment: DISCUSSED RESULTS WITH THE PATIENT. [facility] HE DECLINED PAIN MED RX. NO NEUROLOGIC DEFICIT. RETURN IF WORSE. - Diagnoses Provider Diagnoses: Chronic neck pain, Acute neck pain Discharge - Sign-Out/Discharge Documenting (check all that apply): Discharge/Admit/Transfer - Discharge Plan Condition: Stable Disposition: HOME Patient Education Materials: Acute Neck Pain (ED), Chronic Neck Pain (DC) Referrals: Thang Diaz MD [Primary Care Provider] - Roberto Barlow MD [Medical Doctor] - Additional Instructions: FOLLOW UP WITH YOUR [facility] DO[facility]UROSURGERY. GET RECHECKED FOR ANY WORSENING OF YOUR CONDITION; PAIN, WEAKNESS, NUMBNESS OR QUESTIONS OR CONCERNS. - Billing Disposition and Condition Condition: STABLE Disposition: Home The documentation as recorded by the Elle dickinson SooYoung accurately reflects the service I personally performed and the decisions made by me, Ras Coker MD.
[2018-04-09 17:43] VITALS: BP 135/83
== END 2018-04-09 17:42 | disposition home or self-care (01) ==
LOC: ED 14:47
DX: M54.2 Cervicalgia (principal); G89.29 Other chronic pain; R51 Headache; Z87.891 Personal history of nicotine dependence
CPT/HCPCS: 70450; 72125; 96374; 96375; 99283; A9270-GY; J1885; J2270; J2405

== ENCOUNTER 2018-04-11 19:10 | Emergency (ER) | payer OTHER ==
[2018-04-11] MEDS ORDERED: Bupivacaine 0.25% SDV* 30 ML INJ ONE (19:49)
[2018-04-11] MEDS ORDERED: Meloxicam(NF) 7.5 MG TAB PO ONE (20:00)
[2018-04-11] MEDS ORDERED: Bupivacaine 0.5% PF 10 ML VIAL INJ ONE (20:00)
[2018-04-11] MEDS ORDERED: oxyCODONE/Acetamin 5/325 MG* TAB PO ONE (20:24)
[2018-04-11 20:41] VITALS: BP 136/95
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
[2018-04-12] MEDS ORDERED: Meloxicam(NF) 15 MG TAB PO ONE (19:48)
== END 2018-04-11 20:40 | disposition home or self-care (01) ==
LOC: ED 19:10
DX: G89.29 Other chronic pain (principal); M54.2 Cervicalgia; M47.812 Spondylosis without myelopathy or radiculopathy, cervical region
CPT/HCPCS: 20552; 99282; A9270-GY

== ENCOUNTER 2019-02-05 09:10 | Observation (INO) | payer OTHER ==
--- NOTE | 2019-02-05 09:32 | ED ---
HPI Chest Pain - HPI Summary HPI Summary: Pt is a 53 y/o M presenting to the ED with a chief complaint of chest pain initially onset yesterday. It is located on his L anterior chest, is intermittent, and only lasts about a second when it comes on. The pain tends to come on more when he is exerting himself. This morning, he went to the [place] to see a psychologist and they were concerned about his pain so they sent him to the ED. He reports chest pain and nausea. Pt denies any fever, chills, erythema of eyes , sore throat, SOB, cough, abdominal pain, vomiting, dysuria, hematuria, myalgia , edema, rash, or dizziness. He also states the chest pain does not radiate. 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 His hx includes HTN, HLD, asthma, arthritis, anxiety, and treacherous colon. He chews tobacco, and his father has hx of multiple MIs. - History of Current Complaint Chief Complaint: EDChestPainROMI Time Seen by Provider: 02/05/19 09:16 Hx Obtained From: Patient Onset/Duration: Started Days Ago, Still Present Timing: Intermittent, Lasting Seconds Initial Severity: Mild Current Severity: None Pain Intensity: 2 Pain Scale Used: 0-10 Numeric Chest Pain Location: Left Anterior Chest Pain Radiates: No Character: Sharp/Stabbing Aggravating Factor(s): Exertion Alleviating Factor(s): Nothing Associated Signs and Symptoms: Positive: Chest Pain, Anxiety, Nausea. Negative : Dizziness, Shortness of Breath, Fever, Chills, Cough, Abdominal Pain, Vomiting , Edema - Allergy/Home Medications Allergies/Adverse Reactions: Allergies Allergy/AdvReac Type Severity Reaction Status Date / Time No Known Allergies Allergy Verified 02/05/19 09:12 Home Medications: Home Medications Albuterol HFA INHALER* 2 puff INH QID 02/05/19 [History Confirmed 02/05/19] Cholecalciferol (Vitamin D3) [Vitamin D3] 1 cap PO DAILY 02/05/19 [History Confirmed 02/05/19] FLUoxetine CAP* [Prozac CAP*] 20 cap PO SEE INSTRUCTIONS 02/05/19 [History Confirmed 02/05/19] Fluticasone NASAL SPRAY 50MCG* 1 spray BOTH NARES BID 02/05/19 [History Confirmed 02/05/19] Meclizine TAB* [Antivert 12.5 TAB*] 12.5 mg PO QID PRN 02/05/19 [History Confirmed 02/05/19] Pantoprazole TAB * [Protonix TAB*] 40 mg PO DAILY 02/05/19 [History Confirmed ] Polyethylene Glycol 3350 1 packet PO DAILY 02/05/19 [History Confirmed 02/05/19] Terazosin CAP* [Hytrin CAP*] 3 mg PO DAILY 02/05/19 [History Confirmed 02/05/19] PMH/Surg Hx/FS Hx/Imm Hx Previously Healthy: No Endocrine/Hematology History: Reports: Hx Thyroid Disease - hypothryoid Denies: Hx Diabetes Cardiovascular History: Reports: Hx Angina, Hx Hypercholesterolemia - statins, Hx Hypertension - as of 2018, still on HTN medications, some resolution in 2013 Respiratory History: Reports: Hx Asthma, Hx Sleep Apnea - 2L O2 at bedtime/ overnight, sleep study to follow in 2018 Denies: Hx Chronic Obstructive Pulmonary Disease (COPD) GI History: Reports: Hx Gastroesophageal Reflux Disease, Other GI Disorders - treacherous colon Denies: Hx Ulcer Musculoskeletal History: Reports: Hx Arthritis, Hx Scoliosis, Other Musculoskeletal History - DDD cervical and thoracic spine Sensory History: Reports: Hx Hearing Problem - [place] Neurological History: Reports: Other Neuro Impairments/Disorders - HX OF DDD, pain clinic pt Psychiatric History: Reports: Hx Anxiety, Hx Depression, Hx Post Traumatic Stress Disorder - Surgical History Surgery Procedure, Year, and Place: Rhinoplasty. Tonsillectomy. [place] teeth Infectious Disease History: No Infectious Disease History: Denies: Hx Clostridium Difficile, Hx Hepatitis, Hx Human Immunodeficiency Virus (HIV), Hx of Known/Suspected MRSA, Hx Shingles, Hx Tuberculosis, Hx Known/ Suspected VRE, Hx Known/Suspected VRSA, History Other Infectious Disease, Traveled Outside the [place] in Last 30 Days - Family History Known Family History: Positive: Cardiac Disease - father multiple NC, Other - cancer - Social History Alcohol Use: None Hx Substance Use: No Substance Use Type: Reports: None Hx Tobacco Use: Yes Smoking Status (MU): Former Smoker Type: Smokeless Tobacco Do You Chew or Dip Tobacco: Yes Amount Used/How Often: 1/2 tin per day Have You Chewed or Dipped Tobacco in the LAST YEAR: Yes Review of Systems Negative: Fever, Chills Negative: Erythema Negative: Sore Throat Positive: Chest Pain Negative: Shortness Of Breath, Cough Positive: Nausea. Negative: Abdominal Pain, Vomiting Negative: dysuria, hematuria Negative: Myalgia, Edema Negative: Rash Neurological: Negative - dizziness Positive: Anxious All Other Systems Reviewed And Are Negative: Yes Physical Exam - Summary Physical Exam Summary: Constitutional: Well-developed, Well-nourished, Alert. (-) Distressed Skin: Warm, Dry HENT: Normocephalic; Atraumatic Eyes: Conjunctiva normal Neck: Musculoskeletal ROM normal neck. (-) JVD, (-) Stridor, (-) Tracheal deviation Cardio: Rhythm regular, rate normal, Heart sounds normal; Intact distal pulses; The pedal pulses are 2+ and symmetric. Radial pulses are 2+ and symmetric. (-) Murmur Pulmonary/Chest wall: No reproducible chest pain. Effort normal. (-) Respiratory distress, (-) Wheezes, (-) Rales Abd: Soft, (-) tenderness, (-) Distension, (-) Guarding, (-) Rebound Musculoskeletal: (-) Edema Lymph: (-) Cervical adenopathy Neuro: Alert, Oriented x3 Psych: Mood and affect Normal Triage Information Reviewed: Yes Vital Signs On Initial Exam: Initial Vitals Temp Pulse Resp BP Pulse Ox 98.1 F 86 20 160/87 96 02/05/19 09:11 02/05/19 09:11 02/05/19 09:11 02/05/19 09:11 02/05/19 09:11 Vital Signs Reviewed: Yes Diagnostics - Vital Signs Vital Signs Temp Pulse Resp BP Pulse Ox 02/05/19 09:11 98.1 F 86 20 160/87 96 - Laboratory Result Diagrams: 02/05/19 09:28 02/05/19 09:28 Lab Statement: Any lab studies that have been ordered have been reviewed, and results considered in the medical decision making process. - Radiology CXR Radiology Interpretation Completed By: Radiologist Summary of Radiographic Findings: No active cardiopulmonary disease is noted. ED physician has reviewed this report. - EKG 0915 Cardiac Rate: Other Rate - unknown rhythm, irregular rate at 75bpm ST Segment: Normal Ectopy: None 1104 Cardiac Rate: NL - 66bpm EKG Rhythm: Sinus Rhythm ST Segment: Normal Ectopy: None EKG Comparison: No Significant Change Summary of EKG Findings: EKG at 1104 shows NSR at 66bpm with no STEMI. Re-Evaluation - Re-Evaluation 1st re-eval Re-Evaluation Time: 10:25 Change: Unchanged Comment: The pt is still chest pain free. Chest Pain Course/Dx - Course Course Of Treatment: Pt is a 53 y/o M presenting to the ED with intermittent L anterior chest pain that lasts for a few seconds at a time. He reports chest pain and nausea. Pt denies any fever, chills, erythema of eyes, sore throat, SOB , cough, abdominal pain, vomiting, dysuria, hematuria, myalgia, edema, rash, or dizziness. He also states the chest pain does not radiate. 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 His hx includes HTN, HLD, asthma, arthritis, anxiety, and treacherous colon. He chews tobacco, and his father has hx of multiple MIs. As of 1024, the pt is still chest pain free. I spoke with Dr. Huffman who will be accepting the pt to [facility] as of 1049 with a dx of exertional chest pain. EKG at 1104 shows NSR at 66bpm with no STEMI. - Diagnoses Provider Diagnoses: Exertional chest pain Discharge - Sign-Out/Discharge Documenting (check all that apply): Patient Departure - Discharge Plan Condition: Stable Disposition: ADMITTED TO [facility] Referrals: Thang Diaz MD [Primary Care Provider] - - Attestation Statements Document Initiated by Scribe: Yes Documenting Scribe: Darcie Ling Provider For Whom Scribe is Documenting (Include Credential): Franck Bowen MD. Scribe Attestation: IDarcie, scribed for Franck Bowen MD. on 02/05/19 at 1133. Status of Scribe Document: Ready Consult Consult: 1050 - Spoke with Dr. Huffman who will be accepting the pt to [facility].
[2019-02-05 09:34] LABS: ABS Basophils 0.1 10^3/ul (0-0.2); ABS Eosinophils 0.2 10^3/ul (0-0.6); ABS Lymphocytes 0.9 10^3/ul (1.0-4.8); ABS Monocytes 0.6 10^3/ul (0-0.8); ABS Neutrophils 4.6 10^3/ul (1.5-7.7); ABS Nucleated RBC 0 10^3/ul; Eosinophil % 2.6 %; Hematocrit 44 % (36-46); Hemoglobin 14.9 g/dL (14.0-18.0); Lymphocyte % 14.7 %; Mean Corpuscular HGB Conc 34 g/dL (31-36); Mean Corpuscular Hemoglobin 30 pg (27-31); Mean Corpuscular Volume 86 fL (80-94); Nucleated Red Blood Cells % 0.1; Platelet Count 210 10^3/uL (150-450); Red Blood Count 5.04 10^6 /uL (4.18-5.48); Red Cell Distribution Width 13 % (10.5-15); White Blood Count 6.4 10^3/uL (3.5-10.8)
[2019-02-05 09:53] LABS: Albumin 4.7 g/dL (3.2-5.2); Albumin/Globulin Ratio 1.8 (1-3); BUN/Creatinine Ratio 11.6 (8-20); Calcium 9.4 mg/dL (8.6-10.3); EGFR African American 112.6 (>60); Globulin 2.6 g/dL (2-4); Potassium 3.9 mmol/L (3.5-5.0); Total Bilirubin 0.3 mg/dL (0.2-1.0); Total Protein 7.3 g/dL (6.4-8.9)
[2019-02-05] MEDS ORDERED: Nitroglycerin TAB 0.4 MG* 0.4 MG TAB SL ONE (11:01)
[2019-02-05] MEDS ORDERED: Magnesium Hydroxide LIQ* 30 ML UDC PO PRN (11:45)
[2019-02-05] MEDS ORDERED: Al Hydrox/Mg Hydrox/Simet LIQ* 30 ML UDC PO PRN (11:45)
[2019-02-05] MEDS ORDERED: Acetaminophen TAB* 325 MG PO PRN (11:45)
[2019-02-05] MEDS ORDERED: FLUoxetine CAP* 20 MG PO SCH ×2 (12:00)
[2019-02-05] MEDS ORDERED: Escitalopram * 20 MG TABLET PO SCH (12:00)
[2019-02-05 12:29] LABS: TSH (Thyroid Stimulating Horm) 2.65 mcIU/mL (0.34-5.60)
[2019-02-05] MEDS: Gabapentin CAP(*) 300 MG PO SCH ×2 (13:00→21:03)
[2019-02-05] MEDS ORDERED: Albuterol HFA INHALER* 8 gm MDI INH PRN (13:00)
[2019-02-05] MEDS: Heparin VIAL(*) 5000 UNITS/ML VIAL (FIVE THOUSAND) SUBCUT SCH ×2 (13:01→21:03)
[2019-02-05] MEDS: FLUoxetine CAP* 20 MG PO SCH (13:17)
[2019-02-05] MEDS: Escitalopram * 5 MG TAB PO SCH (13:18)
--- NOTE | 2019-02-05 13:30 | HP ---
AMENDED REPORT NOW INCLUDES COSIGNER DESIGNATION - ESIGNED BEFORE ADJUSTMENTS CC: Dr. Diaz, [facility], [place] * HISTORY AND PHYSICAL: DATE OF ADMISSION: 02/05/19 PRIMARY CARE PROVIDER: Dr. Diaz with the [facility] in [place]. ATTENDING PHYSICIAN: Dr. Estela Huffman *(dictated by Zafar Foster NP). CHIEF COMPLAINT: Chest pain. HISTORY OF PRESENT ILLNESS: Mr. Rubi is a 53-year-old male with a past medical history significant for hypertension, hyperlipidemia, ONEYDA; who presented to the emergency department today on the recommendation of his primary care provider due to intermittent chest pain since yesterday. The patient reports that yesterday while moving furniture he started to feel nauseous and more short of breath than normal. He sat down and started to have sharp intermittent chest pain on the left side of his chest. He reports all these symptoms resolved on their own; therefore, he started to move the furniture again. He reports that lately he has been more short of breath than normal with exertion. He reports this morning on the way to see his primary care provider, he was in the parking lot and had a recurrence of the left-sided chest pain that lasted only a few seconds and was also sharp. At this time, he did not have any associated symptoms. The patient went into his primary care and told him of these episodes and primary care sent him here. The patient reports that aggravating symptoms include exertion. The patient reports alleviating symptoms include time as the pain resolves on its own and it was intermittent, quick, sharp. The patient had associated symptoms of nausea and shortness of breath in the first episode of chest pain, but did not have any associated symptoms today. The patient is currently chest pain free. While in the emergency department, the patient has had repeat EKGs, which have been normal with no ST changes. The patient has had a negative troponin of 0.00. The patient has been chest pain-free. Given the patient's symptoms and medical history, the hospitalists were asked to consult for admission. PAST MEDICAL HISTORY: 1. Hypertension. 2. Hyperlipidemia. 3. Asthma. 4. Anxiety/PTSD. 5. Tortuous colon. 6. ONEYDA. 7. GERD. 8. Degenerative disk disease. PAST SURGICAL HISTORY: 1. Rhinoplasty. 2. Tonsillectomy. 3. [place] teeth extraction. ALLERGIES: No known drug allergies. FAMILY HISTORY: The patient reports father has had multiple MIs, at least 5 to 6. He is unsure of the age of his father at his first NC. Mother is . The patient has a brother who he is estranged from. SOCIAL HISTORY: The patient is an avid tobacco chewer, he has been chewing since he was 16 years old. He denies smoking. He denies alcohol use. He denies drug use. The patient works at [employer]. The patient is , lives with his . The patient's reports his surrogate decision maker will be his daughter, Cordelia Dalton, [phone]. REVIEW OF SYSTEMS: A 14-point review of systems was performed and all the pertinent positive findings are in the HPI. All others are negative. PHYSICAL EXAMINATION GENERAL: Mr. Rubi is a 53-year-old male who is slightly obese, who is lying on the ED stretcher. Appears to be in no acute distress. Appears stated age. VITAL SIGNS: Temp 98.1, HR 77, RR 21, O2 sat 95% on 2 L, BP 136/80. HEENT: PERRLA. EOMs intact. Oral mucosa is moist without lesions. Posterior pharynx is clear. NECK: Full range of motion. No lymphadenopathy. Supple. RESPIRATORY: Symmetrical chest expansion. No accessory muscle use. Lungs are clear to auscultation. No rhonchi, wheezes, or rales. CV: Regular rate and rhythm. S1, S2 present. No murmurs, rubs, or gallops. No JVD. ABDOMEN: Soft, nontender to palpation. Bowel sounds normoactive throughout. EXTREMITIES: Skin is warm and smooth bilaterally. No edema. No clubbing or cyanosis. Pedal pulses 2+ bilaterally. MUSCULOSKELETAL: No pain or deformities. NEURO: Awake, alert, and oriented x4. Cranial nerves II through XII grossly intact. Motor strength is 5/5 in the upper and lower extremities bilaterally. SKIN: Grossly intact without lesions. DIAGNOSTIC STUDIES/LAB DATA: WBC 6.4, hemoglobin 14.9, hematocrit 44, platelets 210. Sodium 138, potassium 3.9, chloride 109, carbon dioxide 25, BUN 10, creatinine 0.86, glucose 103. Alk phos 129. Troponin 0.00. Chest x-ray, impression: No active cardiopulmonary disease. EKG, impression: Normal sinus rhythm. No ST abnormalities noted. ASSESSMENT AND PLAN: Mr. Rubi is a 53-year-old male with a past medical history significant for hypertension, hyperlipidemia, obstructive sleep apnea; who presented to the emergency department today with complaints of chest pain. The patient will be admitted OBV for further evaluation. 1. Chest pain. The patient's initial troponin here in the emergency department is 0.00. Given the patient's symptoms, medical history, family history, we will repeat troponins. We will also repeat EKGs. The patient reports that he has not been able to lie flat when sleeping for a very long time and he sleeps elevated; therefore, I would recommend an echocardiogram as an outpatient. The patient's RUBINA score is 3 and his HEART score is 4. Given his risk factors, I will order a nuclear stress test. In addition, I have ordered a TSH, hemoglobin A1c, and lipid panel. He will be placed on tele. 2. Hypertension. We will continue the patient's home medications of amlodipine and Hytrin. We will monitor his blood pressure accordingly. 3. Hyperlipidemia. We will continue the patient's pravastatin. I have ordered fasting lipids. 4. Asthma/chronic obstructive pulmonary disease. I will continue the patient' s inhalers. 5. Arthritis. I will continue the patient's pain medication as same. 6. Anxiety/posttraumatic stress disorder. I will continue the patient's Lexapro and Prozac. 7. Tortuous colon. The patient reports that he has a baseline of diarrhea given his tortuous colon. I will continue the patient's home bowel regimen. 8. Hypothyroid. The patient reports he does not have a history of hypothyroid , but he was placed on Synthroid by his psychiatrist to hopefully increase his energy. I will order a TSH and we will discuss with the patient risks and benefits of taking a thyroid medication when he is not actually hypothyroid given his cardiac risk factors. 9. Obstructive sleep apnea. The patient reports that he was diagnosed with obstructive sleep apnea and he is awaiting setting for his CPAP machine. He currently is on 2 L nasal cannula at night, which we will continue. 10. Gastroesophageal reflux disease. We will continue the patient's Protonix. 11. FEN: I will place the patient n.p.o. given upcoming stress test. I will not provide IV fluids as the patient seems to be euvolemic. 12. Code status: The patient is a full code. 13. DVT prophylaxis: Based on DVT Risk Assessment, the patient is high risk. I will order heparin subcu. TIME SPENT: Approximately 65 minutes was spent on this admission, greater than half the time was spent with the patient obtaining my history, performing my physical exam, and reviewing my plan of care. The case has been reviewed with my attending, Dr. Huffman, who agrees with my plan. Reviewed by ZAFAR FOSTER, RHYS 02/05/19 @ 1712 [id number]/[facility] #: [id number] MTDLeah
[2019-02-05] MEDS: Atorvastatin* 10 MG TAB PO SCH (16:00)
[2019-02-05] MEDS: Carisoprodol TAB* 350 MG PO PRN (16:00)
[2019-02-05] MEDS ORDERED: LORazepam TAB(*) 0.5 MG PO PRN (16:56)
[2019-02-05] MEDS ORDERED: Melatonin 3 MG TAB PO PRN (16:56)
[2019-02-05] MEDS: Nitroglycerin TAB 0.4 MG* 0.4 MG TAB SL PRN (19:52)
[2019-02-05] MEDS: Mometasone 220 MCG MDI INH SCH (19:56)
[2019-02-06] MEDS: Carisoprodol TAB* 350 MG PO PRN (02:45)
[2019-02-06] MEDS: Heparin VIAL(*) 5000 UNITS/ML VIAL (FIVE THOUSAND) SUBCUT SCH ×2 (05:14→17:01)
[2019-02-06] MEDS ORDERED: Levothyroxine TAB* 25 MCG TAB PO SCH (06:00)
[2019-02-06 06:04] LABS: ABS Basophils 0 10^3/ul (0-0.2); ABS Eosinophils 0.3 10^3/ul (0-0.6); ABS Lymphocytes 0.8 10^3/ul (1.0-4.8); ABS Monocytes 0.6 10^3/ul (0-0.8); ABS Nucleated RBC 0 10^3/ul; Eosinophil % 4.2 %; Hematocrit 44 % (36-46); Hemoglobin 14.9 g/dL (14.0-18.0); Lymphocyte % 12.1 %; Mean Corpuscular HGB Conc 34 g/dL (31-36); Mean Corpuscular Hemoglobin 30 pg (27-31); Mean Corpuscular Volume 87 fL (80-94); Mean Platelet Volume 8.1 fL (7.4-10.4); Nucleated Red Blood Cells % 0.2; Platelet Count 198 10^3/uL (150-450); Red Cell Distribution Width 13 % (10.5-15); White Blood Count 6.7 10^3/uL (3.5-10.8)
[2019-02-06 06:26] LABS: BUN/Creatinine Ratio 14.9 (8-20); Calcium 9.8 mg/dL (8.6-10.3); EGFR African American 93.5 (>60); EGFR Non-African American 77.3 (>60); Potassium 4.4 mmol/L (3.5-5.0)
[2019-02-06] MEDS ORDERED: Regadenoson* 0.4 MG/5 ML SYRINGE ONE (08:41)
[2019-02-06] MEDS ORDERED: Aminophylline IV* 25 MG/ML 10 ML VIAL ONE (08:42)
[2019-02-06] MEDS ORDERED: Terazosin CAP* 1 MG PO SCH (09:00)
[2019-02-06] MEDS ORDERED: Pantoprazole TAB * 40 MG TAB PO SCH (09:00)
[2019-02-06] MEDS ORDERED: amLODIPine TAB* 5 MG PO SCH (09:00)
[2019-02-06] MEDS ORDERED: Polyethylene Glycol 3350* 17 GM PACKET PO SCH (09:00)
[2019-02-06] MEDS ORDERED: Montelukast Sodium TAB* 10 MG PO SCH (09:00)
[2019-02-06] MEDS: FLUoxetine CAP* 20 MG PO SCH (11:03)
[2019-02-06] MEDS: Gabapentin CAP(*) 300 MG PO SCH ×2 (11:04→17:00)
[2019-02-06] MEDS: Nitroglycerin TAB 0.4 MG* 0.4 MG TAB SL PRN ×2 (12:08→12:55)
[2019-02-06] MEDS: Escitalopram * 5 MG TAB PO SCH (15:15)
[2019-02-06] MEDS: Atorvastatin* 10 MG TAB PO SCH (17:00)
[2019-02-06 17:53] VITALS: BP 146/93
[2019-02-06] MEDS: Mometasone 220 MCG MDI INH SCH (19:50)
--- NOTE | 2019-02-07 10:34 | CONS ---
CC: Dr. Diaz, [facility] * CARDIOLOGY CONSULTATION: DATE OF CONSULTATION: 02/06/19 INDICATION FOR CONSULTATION: Chest pain. HISTORY OF PRESENT ILLNESS: The patient is a 53-year-old gentleman with a history of hypertension, hyperlipidemia, obstructive sleep apnea, who came to the emergency room because of chest pain. The patient states that he mentioned this discomfort to his psychologist, who instructed him to go to the emergency room. The patient states that for the past week or so, he has been having episodes of chest pain. It occurs on the left side of his chest, it is a shooting discomfort that goes to his shoulder. When it occurs, it lasts about 2 seconds and then resolves on its own. He has perhaps 5 of these episodes a day. They are not associated with exertion. They are not associated with activity. They are not associated with meals. He denies any lightheadedness, dizziness or syncope. He denies any palpitations. The patient was admitted to the hospital with these symptoms. His initial EKG showed no ischemic EKG changes. His initial troponin level was negative. PAST MEDICAL HISTORY: Consistent with hypertension, hyperlipidemia, PTSD, and obstructive sleep apnea. PAST SURGICAL HISTORY: Tonsillectomy, rhinoplasty. MEDICATIONS: Outpatient medications: 1. Pulmicort inhaler. 2. Amlodipine 10 mg a day. 3. Soma 350 mg as needed. 4. Singulair 10 mg a day. 5. Gabapentin 300 mg 3 times a day. 6. Synthroid 25 mcg a day. 7. Pantoprazole 40 mg a day. 8. Prozac 40 mg a day. 9. Terazosin 3 mg a day. 10. Meclizine 12.5 mg as needed. 11. Ventolin inhaler as needed. 12. Lexapro 10 mg a day. 13. Flonase nasal spray. ALLERGIES: No known drug allergies. FAMILY HISTORY: Father reportedly had myocardial infarctions. Mother of natural causes. 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 He denies tobacco use. Denies alcohol use. He is an active tobacco user with chewing tobacco. He is . He lives with his . REVIEW OF SYSTEMS: Negative for fever and chills. Negative for changes in bowel or bladder habits. Negative for change in weight. Other 12-point review was unremarkable. PHYSICAL EXAM: Vital Signs: Height is 5 feet 11 inches, weight 241 pounds. Temperature 97.8, heart rate is 73, blood pressure 131/86, respiratory rate is 18, and oxygen saturation 96% on room air. Sclerae anicteric. Oropharynx is pink without erythema. Carotids are 2+ without bruits. JVD is normal. Thyroid is normal. Cardiac Exam: S1, S2 without any murmurs, rubs, or gallops. PMI is normal. Lungs are clear to auscultation bilaterally. There is no dullness to percussion. Abdomen is soft, nontender, nondistended with normoactive bowel sounds. Extremities show no edema. He has 2+ pulses throughout. Patient is awake, alert, and oriented. He moves all 4 extremities equally. DIAGNOSTIC STUDIES/LAB DATA: EKG on arrival demonstrated normal sinus rhythm with normal axis and intervals, unchanged from previous EKGs. Laboratory Studies: CBC within normal limits. Chemistries within normal limits. Troponins are negative x3. Total cholesterol 201, LDL cholesterol 91. The patient did have a stress test today with nuclear imaging. I reviewed the nuclear images personally. The images shows a [id number] size area of decreased perfusion to the inferior wall during the stress images that improves during the resting imaging. Attenuation correction was not done. I reviewed the raw images. There is lot of gut uptake associated with liver, also there is some diaphragmatic attenuation. His LV function is normal. His inferior wall does not become hypokinetic with stress images. IMPRESSION: This is a 53-year-old gentleman with a history of hypertension, hyperlipidemia, who was admitted to the hospital with very atypical chest pain. His EKG is unremarkable. Troponins were negative. Again, his nuclear images were reviewed personally. I do not think there is a strong suggestion of significant cardiac ischemia. His LV function is normal. RECOMMENDATIONS: For now, my recommendation is to continue with current medications. The patient should be started on aspirin a day. His other medications will remain the same. His blood pressure is under good control. The patient will follow up with his primary care physician. If he has further chest pain, I will be glad to see the patient again and reevaluate his cardiac status. Case was discussed with Gabby Conner NP, hospital service. [id number]/[facility] #: [id number] NAHUM
--- NOTE | 2019-02-09 22:46 | DS ---
CC: Dr. Diaz; [place]; Dr. Alec Rubin; Dr. Porsche Escobar. DISCHARGE SUMMARY: DATE OF ADMISSION: 02/05/19 DATE OF DISCHARGE: 02/06/19 PRIMARY CARE PROVIDER: Dr. Diaz in the [place]. MY ATTENDING FOR DISCHARGE: Dr. Porsche Escobar. HOSPITAL COURSE: Please refer to admitting H and P by Lary Brown on 02/05/19, but in short, Mr David Rubi is a 53-year-old male patient with a history significant for hypertension, hyperlipidemi a, obstructive sleep apnea, and PTSD, who presented after going to see his primary care provider with complaint of intermittent chest pain. Patient stated he had some accompanying nausea and some short ness of breath that were abnormal for him. He had to sit down and then described some kind of sharp radiating pain to the left chest. He was admitted for rule out ACS. He had no changes on his EKG. He had negative troponins and then had been chest pain free. He was admitted for a stress test. Af ter his stress test, however, his chest pain did return. He had 2 runs of nitro which also seemed to help his chest pain. His stress test was read as intermittent risk. I did reach out to Dr. Alec Rubin to evaluate his nuclear images and determine the meaning of his results and to see if the mariama ent would require additional testing or imaging while in the hospital during this admission. The nuc lear portion of this test showed a small to moderate sized area of decreased perfusion around the inf erior wall during the stress portion of his test. Dr. Rubin's evaluation of the images noted that th ere may have been some associated change with the liver and some diaphragmatic attenuation. Overall, his left ventricular function was normal and he did not feel that this represented an intermediate s tress test in this setting. He does have some risk factors, however, his body habitus, history of hy pertension, hyperlipidemia. As such, he felt it would be worth it to send the patient out on a baby aspirin and have some additional followup as an outpatient. The patient was satisfied with this discu ssion. Dr. Rubin did have a lengthy conversation with the patient about his risk factors and his gem ting and his followup. His blood pressure management is adequate. He is on an appropriate statin. Marnie julian is not diabetic. He is normally an active person. So, to be started on a baby aspirin for prevent jessy management should be adequate for him at this time. So, patient so chooses to follow up with Card iology in the future that could be at his discretion. At this point, he did not rule in for any acut e cardiac issues at this time. DISCHARGE DIAGNOSES: 1. Atypical chest pain. 2. Hypertension. 3. Hyperlipidemia. 4. Obstructive sleep apnea. MEDICATIONS FOR DISCHARGE: Include: 1. Prozac 20 mg p.o. daily. 2. Lexapro 15 mg daily. 3. Albuterol 2 puffs inhaled daily. 4. Flonase 1 spray both nares 2 times a day. 5. Antivert 12.5 mg 4 times a day as needed. 6. Hytrin 3 mg p.o. daily. 7. Vitamin D 1 cap p.o. daily. 8. Pulmicort Flexhaler 180 micrograms inhaled 2 times a day as needed. 9. Naproxen 250 mg p.o. b.i.d. as needed. 10. Synthroid 25 mcg daily. 11. Gabapentin 300 mg 3 times a day. 12. Soma 350 mg q.6 hours as needed. 13. Norvasc 10 mg p.o. daily. 14. Pravastatin 40 mg in the evening. 15. Pantoprazole 40 mg p.o. daily. 16. Singulair 10 mg daily. New Medication: Aspirin 81 mg p.o. daily. REVIEW OF SYSTEMS: The day of discharge, patient denies any fever, fatigue, or chills. No shortness of breath. He did have intermittent chest pain, which is now resolved. No nausea, no vomiting, no abdominal pain, no urinary complaints, no arthralgias or myalgias and no further constitutional compl aints. PHYSICAL EXAMINATION: Reveals a well-appearing gentleman around his stated age, in no acute distress . His vital signs are: blood pressure 131/86, heart rate 80, respiratory rate 16, O2 saturation 96% on room air with a temperature of 98.3. HEENT: The patient is atraumatic, normocephalic. PERRLA. No nicteric sclerae. Oral mucosa is moist. Tongue is midline. Neck: Supple. Nontender. No JVD noted . No carotid bruits auscultated. Lungs are clear bilaterally to auscultation with no wheezing, rhon chi, or rales. Cardiovascular: S1, S2 present. No murmurs, gallops, or rubs noted. Rate and rhyth m are regular. Abdomen is soft, nontender, and nondistended. Positive bowel sounds in all 4 quadran ts. : Deferred. Musculoskeletal: There is no clubbing, no cyanosis, no edema. He has +2 pulses di stally. Full range of motion. Steady gait. Neurologic: Grossly intact with no focal deficits. Ps ychiatric: He is cooperative and appropriate. He can be tearful at times, but otherwise no acute is sues noted. LABORATORY DATA: WBC 6.7, RBC is 5.00, hemoglobin 14.9, hematocrit 44, platelets 198. Sodium 139, p otassium 4.4, chloride 104, CO2 28, BUN 15, creatinine 1.01, GFR 77.3, glucose 115, hemoglobin A1c 5. 5, lactic acid 0.9, calcium 9.8. Troponins were negative at 0.00 x3. Triglycerides 393, total boo sterol 201, LDL 91, HDL 31, TSH 2.65. Nuclear imaging as noted above. DISPOSITION: Patient was discharged to home in stable condition in the care of his . All questi ons were answered. The patient stated his understanding of his discharge, medications, followups and discharge plan of care. FOLLOWUP: The patient was instructed to follow up with Dr. Thang [facility] 1 [facility]. Again, we stressed that the patient should have a conversation with his primary care provid er regarding the utility of further cardiac workup or visit with maintenance and repair worker as needed. DISPOSITION: Discharged home in stable condition. TIME SPENT: Approximately 45 minutes developing discharge plan of care and counseling the patient. YAZMIN TURK NP [id number]/[facility] #: [id number]
== END 2019-02-07 06:16 | disposition home or self-care (01) ==
LOC: ED 09:10 → INTOOBSV 11:45 → MEDTELE 11:45 → OBSVTOIN 02-06 14:00 → INTOOBSV 02-06 14:00
PROVIDERS: ADMIT Hospitalist; ATTEND Hospitalist
DX: R07.9 Chest pain, unspecified (principal); F41.9 Anxiety disorder, unspecified; R11.0 Nausea; I10 Essential (primary) hypertension; E03.9 Hypothyroidism, unspecified; K21.9 Gastro-esophageal reflux disease without esophagitis; Z87.891 Personal history of nicotine dependence; E78.5 Hyperlipidemia, unspecified; F43.10 Post-traumatic stress disorder, unspecified; G47.33 Obstructive sleep apnea (adult) (pediatric); R06.02 Shortness of breath; J45.909 Unspecified asthma, uncomplicated
CPT/HCPCS: 36415; 71045; 78452; 80048; 80053; 80061; 83036; 83605; 84443; 84484; 85025; 93005; 93017; 94640; 96372; 99284; A9270-GY; A9502; G0378; J0280; J1644; J2785

== ENCOUNTER 2019-05-09 08:47 | Emergency (ER) | payer OTHER ==
[2019-05-09] MEDS ORDERED: LORazepam TAB(*) 1 MG PO ONE ×2 (09:08→10:57)
--- NOTE | 2019-05-09 09:10 | ED ---
Psychiatric Complaint - HPI Summary HPI Summary: The pt is a 54 yr old male presenting to [facility] c/o panic attack and anxiety beginning 2 hours [employer]. He went to physical therapy earlier today and starting experiencing CP, increased rate of breathing, and shaking. He notes having had these symptoms between and that he is nervous in public spaces. The CP that he was feeling before is now resolved. He mentions that he takes medication for anxiety and panic attacks. He has Hx of PTSD, depression, and anxiety. - History Of Current Complaint Chief Complaint: EDChestPainROMI Time Seen by Provider: 05/09/19 09:02 Hx Obtained From: Patient Onset/Duration: Sudden Onset, Lasting Hours, Still Present Timing: Intermittent Episode Lasting - minutes to hours Severity Initially: Moderate Severity Currently: Moderate Character: Anxious Aggravating Factor(s): Nothing Alleviating Factor(s): Nothing - Allergies/Home Medications Allergies/Adverse Reactions: Allergies Allergy/AdvReac Type Severity Reaction Status Date / Time No Known Allergies Allergy Verified 05/09/19 08:57 Home Medications: Home Medications Cetirizine* [ZyrTEC 10 MG TAB*] 10 mg PO DAILY 05/09/19 [History Confirmed 05/09] Sertraline* [Zoloft*] 50 mg PO DAILY 05/09/19 [History Confirmed 05/09/19] Tiotropium CAP.INH* [Spiriva CAP.INH*] 1 cap.inh INH DAILY 05/09/19 [History Confirmed 05/09/19] clonazePAM TAB(*) [KlonoPIN TAB(*)] 0.5 mg PO BEDTIME PRN 05/09/19 [History Confirmed 05/09/19] PMH/Surg Hx/FS Hx/Imm Hx Endocrine/Hematology History: Denies: Hx Diabetes, Hx Thyroid Disease Cardiovascular History: Reports: Hx Angina, Hx Hypercholesterolemia - statins, Hx Hypertension - as of 2018, still on HTN medications, some resolution in 2013 Respiratory History: Reports: Hx Asthma, Hx Sleep Apnea - 2L O2 at bedtime/ overnight, sleep study to follow in 2018 Denies: Hx Chronic Obstructive Pulmonary Disease (COPD) GI History: Reports: Hx Gastroesophageal Reflux Disease, Other GI Disorders - torchous colon Denies: Hx Ulcer History: Reports: Hx Benign Prostatic Hyperplasia Musculoskeletal History: Reports: Hx Arthritis, Hx Scoliosis, Other Musculoskeletal History - DDD cervical and thoracic spine Sensory History: Reports: Hx Contacts or Glasses, Hx Hearing Problem - Left Ear Denies: Hx Hearing Aid Opthamlomology History: Reports: Hx Contacts or Glasses Neurological History: Reports: Other Neuro Impairments/Disorders - HX OF DDD, pain clinic pt Psychiatric History: Reports: Hx Anxiety, Hx Depression, Hx Post Traumatic Stress Disorder - Surgical History Surgery Procedure, Year, and Place: Rhinoplasty. Tonsillectomy. [place] teeth Infectious Disease History: No Infectious Disease History: Denies: Hx Clostridium Difficile, Hx Hepatitis, Hx Human Immunodeficiency Virus (HIV), Hx of Known/Suspected MRSA, Hx Shingles, Hx Tuberculosis, Hx Known/ Suspected VRE, Hx Known/Suspected VRSA, History Other Infectious Disease, Traveled Outside the [place] in Last 30 Days - Family History Known Family History: Positive: Cardiac Disease - father multiple ME, Other - cancer - Social History Alcohol Use: None Hx Substance Use: No Substance Use Type: Reports: None Hx Tobacco Use: Yes Smoking Status (MU): Former Smoker Type: Smokeless Tobacco Amount Used/How Often: 1/2 tin per day Review of Systems Positive: Chest Pain - now resolved Positive: Other - tachypneic Psychological: Other - positive - tremoring Positive: Anxious All Other Systems Reviewed And Are Negative: Yes Physical Exam - Summary Physical Exam Summary: Appearance: Anxious appearing male who is laying in the stretcher somewhat tremulously, Well-nourished Skin: Warm, dry, no obvious rash Eyes: sclera anicteric, no conjunctival pallor ENT: mucous membranes moist, pharynx appears normal Neck: Supple, nontender Respiratory: Clear to auscultation, no signs of respiratory distress Cardiovascular: Normal S1, S2. No murmurs. Normal distal pulses in tibial and radial bilaterally. Abdomen: Soft, nontender, normal active bowel sounds present Musculoskeletal: Normal, Strength/ROM Intact Neurological: A&Ox3, awake and alert, mentation is normal, speech is fluent and appropriate Psychiatric: affect is normal, does not appear anxious or depressed Triage Information Reviewed: Yes Vital Signs On Initial Exam: Initial Vitals Temp Pulse Resp BP Pulse Ox 97.8 F 88 18 150/90 95 05/09/19 08:55 05/09/19 08:55 05/09/19 08:55 05/09/19 08:55 05/09/19 08:55 Vital Signs Reviewed: Yes Diagnostics - Vital Signs Vital Signs Temp Pulse Resp BP Pulse Ox 05/09/19 08:55 97.8 F 88 18 150/90 95 - Laboratory Result Diagrams: 05/09/19 09:08 05/09/19 09:08 Lab Statement: Any lab studies that have been ordered have been reviewed, and results considered in the medical decision making process. - EKG 0849 Cardiac Rate: NL - 89 bpm EKG Rhythm: Sinus Rhythm Summary of EKG Findings: NSR at 89 BPM, P waves, QRS complex, and T waves are within normal limits, T waves and intervals are normal, no ischemic changes. This is a normal EKG. Re-Evaluation - Re-Evaluation First Eval Re-Evaluation Time: 10:57 Change: Improved Comment: I discussed results with the patient thus far. He is feeling improved after Ativan. Second Eval Re-Evaluation Time: 12:00 Comment: We discussed discharge plan. Course/Dx - Course Course Of Treatment: The pt is a 54 yr old male presenting to [facility] c/o panic attack and anxiety beginning 2 hours [employer]. He went to physical therapy earlier today and starting experiencing CP, increased rate of breathing, and shaking. He notes having had these symptoms between and that he is nervous in public spaces. The CP that he was feeling before is now resolved. He mentions that he takes medication for anxiety and panic attacks. He has Hx of PTSD, depression, and anxiety. The physical exam was only notable for appearing anxious and tremulous. Test results normal except for RBC @ 5.5, Glucose @ 118, and Alkaline Phosphatase @ 137. An EKG reveals NSR at 89 BPM, P waves, QRS complex , and T waves are within normal limits, T waves and intervals are normal, no ischemic changes. This is a normal EKG. In the ED course the pt was given 1 mg Ativan PO twice. The pt was diagnosed with panic attack, discharged home, and instructed to follow up with PCP within 3 days. The pt is stable and agreeable with this plan. - Differential Dx/Clinical Impression Provider Diagnosis: Panic attack Discharge - Sign-Out/Discharge Documenting (check all that apply): Patient Departure - discharge Patient Received Moderate/Deep Sedation with Procedure: No - Discharge Plan Condition: Stable Disposition: HOME Patient Education Materials: Panic Attack (ED) Referrals: Thang Diaz MD [Primary Care Provider] - 3 Days Additional Instructions: Follow up with your primary care provider in 2-3 days. RETURN TO THE EMERGENCY DEPARTMENT FOR ANY NEW OR WORSENING SYMPTOMS. - Billing Disposition and Condition Condition: STABLE Disposition: Home - Attestation Statements Document Initiated by Jany: Yes Documenting Scribe: Darshan Valero Provider For Whom Jany is Documenting (Include Credential): Christ Sanabria MD Scribe Attestation: IDarshan, scribed for Christ Sanabria MD on 05/11/19 at 0435. Scribe Documentation Reviewed: Yes Provider Attestation: The documentation as recorded by the Darshan dickinson accurately reflects the service I personally performed and the decisions made by me, Christ Sanabria MD Status of Scribe Document: Viewed
[2019-05-09 09:19] LABS: ABS Basophils 0.1 10^3/ul (0-0.2); ABS Eosinophils 0.1 10^3/ul (0-0.6); ABS Lymphocytes 1.1 10^3/ul (1.0-4.8); ABS Monocytes 0.4 10^3/ul (0-0.8); ABS Neutrophils 3.1 10^3/ul (1.5-7.7); Eosinophil % 2.4 %; Hematocrit 47 % (42-52); Lymphocyte % 23.4 %; Mean Corpuscular HGB Conc 34 g/dL (31-36); Mean Corpuscular Hemoglobin 29 pg (27-31); Mean Corpuscular Volume 85 fL (80-94); Mean Platelet Volume 7.7 fL (7.4-10.4); Nucleated Red Blood Cells % 0.1; Platelet Count 193 10^3/uL (150-450); Red Cell Distribution Width 13 % (10-15); White Blood Count 4.9 10^3/uL (3.5-10.8)
[2019-05-09 09:34] LABS: INR 1.03 (0.82-1.09)
[2019-05-09 09:40] LABS: Albumin 4.5 g/dL (3.2-5.2); Albumin/Globulin Ratio 1.7 (1-3); BUN/Creatinine Ratio 15.2 (8-20); Calcium 9.7 mg/dL (8.6-10.3); EGFR African American 95.3 (>60); EGFR Non-African American 78.8 (>60); Globulin 2.6 g/dL (2-4); Potassium 4.1 mmol/L (3.5-5.0); Total Bilirubin 0.5 mg/dL (0.2-1.0); Total Protein 7.1 g/dL (6.4-8.9)
[2019-05-09 12:36] VITALS: BP 130/97
== END 2019-05-09 12:35 | disposition home or self-care (01) ==
LOC: ED 08:47
DX: F41.0 Panic disorder [episodic paroxysmal anxiety] (principal); Z79.899 Other long term (current) drug therapy; I20.9 Angina pectoris, unspecified; E78.00 Pure hypercholesterolemia, unspecified; I10 Essential (primary) hypertension; J45.909 Unspecified asthma, uncomplicated; K21.9 Gastro-esophageal reflux disease without esophagitis; Z87.891 Personal history of nicotine dependence
CPT/HCPCS: 36415; 80053; 84484; 85025; 85610; 93005; 99283; A9270-GY

== ENCOUNTER 2019-07-06 13:23 | Emergency (ER) | payer OTHER ==
--- OUTSIDE RECORDS SUMMARY | 2019-07-06 13:39 | XMS REPORT | Summary of Care ---
:1965 Author Organization [facility] Address [address] [facility] [place] [address] Care Team Providers Name Role Phone Yadira Tran [employer]OCKSTITCH Primary Care Provider Reason for Referral MRI/CAT/PET Scan (Routine) Status Reason Specialty Diagnoses / Referred By Referred To Procedures Contact Contact Pending Review Diagnoses Hepatic cyst Adrian, Procedures US HEPATIC WITH DOPPLER Kortney Gilmore NP [address] [place] [address] Reason for Visit Reason Comments GI Problem [facility]. Encounter Details Date Type Department Care Team Description 06/01/2019 Office Visit [facility] [place] Hepatic cyst (Primary Gastroenterology/Hepa Kortney Gilmore NP Dx) tology 1 [facility] [address] [facility] [place] [address] [place] [address] Allergies Active Allergy Reactions Severity Noted Date Comments Bee Venom Unknown Reaction 05/28/2019 Duloxetine Hcl Unknown Reaction 05/10/2019 documented as of this encounter (statuses as of 06/01/2019) Medications Medication Sig Dispensed Refills Start Date End Date Status ciprofloxacin-dexame Place 4 Drops 0 Active thasone (CIPRODEX) into both ears 0.3-0.1 % Otic ONE TIME. Suspension clonazePAM Take 0.5 mg by 0 Active (KLONOPIN) 0.5 MG mouth TWICE Oral Tab DAILY. albuterol Take 2 Puffs by 0 Active (PROVENTIL,VENTOLIN) inhalation FOUR 90 mcg/act TIMES DAILY. budesonide-formotero Take 2 INHL by 0 Active l aerosol inhalation (SYMBICORT) 160-4.5 TWICE DAILY. MCG/DOSE Inhalation Aerosol carisoprodol (SOMA) Take 350 mg by 0 Active 350 MG Oral Tab mouth FOUR TIMES DAILY. gabapentin Take 300 mg by 0 Active (NEURONTIN) 300 MG mouth THREE Oral Cap TIMES DAILY. montelukast Take 10 mg by 0 Active (SINGULAIR) 10 MG mouth DAILY. Oral Tab pantoprazole Take 40 mg by 0 Active (PROTONIX) 40 MG mouth DAILY. Oral Tab EC pravastatin Take 60 mg by 0 Active (PRAVACHOL) 40 MG mouth DAILY. Oral Tab sertraline (ZOLOFT) Take 150 mg by 0 Active 50 MG Oral Tab mouth DAILY. terazosin (HYTRIN) 1 Take 3 mg by 0 Active MG Oral Cap mouth DAILY. Spacer/Aero-Holding by Does not 0 Active Chambers apply route. (AEROCHAMBER MINI CHAMBER) Does not apply Device amLodipine (NORVASC) Take 10 mg by 0 Active 10 MG Oral Tab mouth DAILY. Cholecalciferol Take 1 Cap by 0 Active (VITAMIN D-3) 1000 mouth DAILY. units Oral Cap cetirizine (ZYRTEC) Take 10 mg by 0 Active 10 MG Oral Tab mouth DAILY. fluticasone Mcrae 2 Sprays 0 Active (FLONASE) 50 MCG/ACT in nose TWICE Nasal Suspension DAILY. naproxen (NAPROSYN) Take 250 mg by 0 Active 250 MG Oral Tab mouth TWO TIMES DAILY NEEDED. Polyethylene Glycol 17 g by Does 0 Active 3350 Does not apply not apply route Powder DAILY. tiotropium (SPIRIVA Take 18 mcg by 0 Active HANDIHALER) 18 MCG inhalation Inhalation Cap DAILY. cholecalciferol Take 1,000 0 Discontinued (VITAMIN D) 1000 Units by mouth 9 UNIT Oral Tab DAILY. escitalopram Take 20 mg by 0 Discontinued (LEXAPRO) 20 MG Oral mouth DAILY. 9 Tab amoxicillin (AMOXIL, Take 875 mg by 0 Discontinued POLYMOX, TRIMOX) 875 mouth TWICE 9 MG Oral Tab DAILY. levothyroxine Take 100 mcg by 0 Discontinued (SYNTHROID\\UNITHROID mouth BEFORE 9 ) 100 MCG Oral Tab BREAKFAST. predniSONE Take 10 mg by 0 Discontinued (DELTASONE) 10 MG mouth DAILY. 9 Oral Tab documented as of this encounter (statuses as of 06/01/2019) Active Problems Problem Noted Date Sinusitis 05/28/2019 Anemia 05/28/2019 Cerebral aneurysm, nonruptured 05/28/2019 Cervicalgia 05/28/2019 Disorder of prostate 05/28/2019 Chest pain, unspecified 05/28/2019 Dyspnea 05/28/2019 Essential hypertension 05/28/2019 Hypercalcemia 05/28/2019 Hyperlipidemia 05/28/2019 Major depressive disorder 05/28/2019 Osteoarthritis 05/28/2019 Fatigue 05/28/2019 Otitis media, unspecified, unspecified ear 05/28/2019 Chronic post-traumatic stress disorder (PTSD) 05/28/2019 Scoliosis 05/28/2019 Sleep apnea, unspecified 05/28/2019 Mood disorder 05/28/2019 documented as of this encounter (statuses as of 06/01/2019) Social History Tobacco Use Types Packs/Day Years Used Date Never Smoker Smokeless Tobacco: Current User Chew Sex Assigned at Date Recorded Not on file Job Start Date Occupation Industry Not on file Not on file Not on file Travel History Travel Start Travel End No recent travel history available. documented as of this encounter Last Filed Vital Signs Vital Sign Reading Time Taken Comments Blood Pressure 118/74 06/01/2019 12:40 PM EDT Pulse 72 06/01/2019 12:40 PM EDT Temperature 37 06/01/2019 12:40 PM EDT C (98.6 F) Respiratory Rate - - Oxygen Saturation - - Inhaled Oxygen Concentration - - Weight 113.2 kg (249 lb 8 oz) 06/01/2019 12:40 PM EDT Height 180.3 cm (5' 11") 06/01/2019 12:40 PM EDT Body Mass Index 34.8 06/01/2019 12:40 PM EDT documented in this encounter Patient Instructions Patient InstructionsKortney Campbell NP - 06/01/2019 1:00 PM EDT1. Will follow cyst to evaluate for evidence of change or growth in 6 months (August- September 2019), growth of this is not anticipated. 2. Schedule a liver ultrasound in 6 months with a follow up office visit therafter Thank you for choosing the [facility] for your needs today! -Kortney Campbell N.PDavid , Please call if you need to cancel or change your appt. time. Thank you for choosing [facility] for your health care needs, and for consulting with [facility] today. You may receive a survey following this visit, or after an upcoming hospital stay. As easy as it is to feel overloaded with surveys, we are required to send them out randomly and they do provide important feedback so that we may serve your needs in the best way. Please do take the few minutes required to complete the survey if you receive one. We get them too, after seeing the doctor, and they only take a few minutes to complete. Patient Education Cysts in the Liver About this topic A liver cyst is an abnormal sac filled with fluid in the liver. If the cyst is large, you may have pain in your belly. Sometimes, you can feel the cyst through your belly. Cysts in the liver can develop slowly in early age and can be found during adult years. If you have simple liver cysts, you may not have any signs. Your liver may work normally. Some cysts may heal on their own. Your liver cysts may: Be present when you are born and are common during puberty. These can get bigger as your hormones change. You may have more than one cyst in your liver. Or may not be a kind of cancer. These are neoplastic cysts. This kind of cyst is rare and most often do not cause any signs. You may have vague signs and feel like your belly is full or have an upset stomach. Be caused by a parasite infection. These are hydatid cysts. There may be problems with these like pain, especially as the cyst grows. Be caused by other infections. This is an abscess. What are the causes? The exact cause of liver cysts is not known. They may be due to genetic problems or present from . This is called polycystic liver disease or PLD. The cysts may also be from an infection. Abnormalcell growth may cause some cysts. What are the main signs? Most liver cysts do not cause any signs. If they become large, they may cause the following signs: Swelling of your belly Pain in the upper right part of the belly Throwing up Problems in digestion Shoulder pain Enlarged liver How does the doctor diagnose this health problem? You doctor will take your history and do an exam. The doctor will check your belly to see if your liver or kidneys are large. The doctor will also check for tenderness and any growths on your liver or kidneys. You may need to have: Blood tests including liver function tests Ultrasound CT or MRI scan Biopsy of liver cyst How does the doctor treat this health problem? Most liver cysts do not need treatment. Your doctor may do a procedure to drain or remove the cysts if they are large, painful, or cause other problems. The doctor will try to find out if other illnesses may be causing your liver cysts. If the cause of the cysts is due to infection, your doctor may give you drugs to treat the infection. If the cysts become infected, cause serious problems, or a cancer develops , surgery may be needed. Although it is rare, a live transplant may be necessary for polycystic liver disease if the complications cannot be managed. What lifestyle changes are needed? If you are a smoker, stop smoking. If you have problems quitting, ask for help. Avoid drinking beer, wine, and mixed drinks (alcohol). Practice good personal hygiene to avoid parasitic infections. Keep a healthy weight. Exercise regularly. Eat a healthy diet. Eat foods low in fats like fruits, vegetables, whole grains, lean proteins,and low-fat dairy products. Avoid too much sugar. What drugs may be needed? The doctor may order drugs to: Fight an infection Where can I learn more? The [employer] http://www.thelivercarefoundation.org/?page=liver_cysts The [employer] Foundation http://www.liverfoundation.org/abouttheliver/info/livercysts/ Last Reviewed Date 2017-01-03 Consumer Information Use and Disclaimer This information is not specific medical advice and does not replace information you receive from your health care provider. This is only a brief summary of general information. It does NOT include allinformation about conditions, illnesses, injuries, tests, procedures, treatments, therapies, discharge instructions or life-style choices that may apply to you. You must talk with your health care provider for complete information about your health and treatment options. This information should not beused to decide whether or not to accept your health care providers advice, instructions or recommendations. Only your health care provider has the knowledge and training to provide advice that isright for you. Copyright Copyright 2018 [employer] and its affiliates and/or licensors. All rights reserved. documented in this encounter Progress Notes Kortney Campbell NP - 06/01/2019 1:00 PM EDT PATIENT: Cristhian Rubi : 1965 DATE OF SERVICE: 06/01/2019 REFERRING PRACTITIONER: Yadira Tran PRIMARY CARE PROVIDER: Yadiar Tran CHIEF COMPLAINT: Chief Complaint Patient presents with GI Problem [facility]. Subjective HISTORY OF PRESENT ILLNESS: Cristhian Rubi is a 54-y.o. male who presents for a consultation. He reports having been hospitalized a few months ago for CP, while hospitalized he had imaging performed which incidentally found 2 liver cysts, one in the LL which is 4.6cm, and a 2cm cyst in the RL posteriorly. Liver enzymes are normal: ALT 51, AST 21 on 02/18/19, platelets are normal at 263 k/mm3. He denies abdominal pain, dysphagia, fatigue, nausea, vomiting, melena, hamatemesis, hematochezia, constipation, diarrhea, jaundice, fevers, chills, night sweats, weight loss, easy bruising, dysuria, hematuria, pyuria, joint pains, acholic stools, dark urine or systemic pruritis. The referring provider's recommended test(s) and treatment(s) to date have been reviewed. History reviewed. No pertinent past medical history. History reviewed. No pertinent surgical history. History reviewed. No pertinent family history. Current Outpatient Medications Medication Sig albuterol (PROVENTIL,VENTOLIN) 90 mcg/act Take 2 Puffs by inhalation FOUR TIMES DAILY. amLodipine (NORVASC) 10 MG Oral Tab Take 10 mg by mouth DAILY. budesonide-formoterol aerosol (SYMBICORT) 160-4.5 MCG/DOSE Inhalation Aerosol Take 2 INHL by inhalation TWICE DAILY. carisoprodol (SOMA) 350 MG Oral Tab Take 350 mg by mouth FOUR TIMES DAILY. cetirizine (ZYRTEC) 10 MG Oral Tab Take 10 mg by mouth DAILY. Cholecalciferol (VITAMIN D-3) 1000 units Oral Cap Take 1 Cap by mouth DAILY. ciprofloxacin-dexamethasone (CIPRODEX) 0.3-0.1 % Otic Suspension Place 4 Drops into both earsONE TIME. clonazePAM (KLONOPIN) 0.5 MG Oral Tab Take 0.5 mg by mouth TWICE DAILY. fluticasone (FLONASE) 50 MCG/ACT Nasal Suspension Mcrae 2 Sprays in nose TWICE DAILY. gabapentin (NEURONTIN) 300 MG Oral Cap Take 300 mg by mouth THREE TIMES DAILY. montelukast (SINGULAIR) 10 MG Oral Tab Take 10 mg by mouth DAILY. naproxen (NAPROSYN) 250 MG Oral Tab Take 250 mg by mouth TWO TIMES DAILY NEEDED. pantoprazole (PROTONIX) 40 MG Oral Tab EC Take 40 mg by mouth DAILY. Polyethylene Glycol 3350 Does not apply Powder 17 g by Does not apply route DAILY. pravastatin (PRAVACHOL) 40 MG Oral Tab Take 60 mg by mouth DAILY. sertraline (ZOLOFT) 50 MG Oral Tab Take 150 mg by mouth DAILY. Spacer/Aero-Holding Chambers (AEROCHAMBER MINI CHAMBER) Does not apply Device by Does not apply route. terazosin (HYTRIN) 1 MG Oral Cap Take 3 mg by mouth DAILY. tiotropium (SPIRIVA HANDIHALER) 18 MCG Inhalation Cap Take 18 mcg by inhalation DAILY. No current facility-administered medications for this visit. Allergies Allergen Reactions Bee Venom Unknown Reaction Cymbalta [Duloxetine Hcl] Unknown Reaction Social History Socioeconomic History Marital status: Spouse name: Not on file Number of children: Not on file Years of education: Not on file Highest education level: Not on file Occupational History Not on file Social Needs Financial resource strain: Not on file Food insecurity: Worry: Not on file Inability: Not on file Transportation needs: Medical: Not on file Non-medical: Not on file Tobacco Use Smoking status: Never Smoker Smokeless tobacco: Current User Types: Chew Substance and Sexual Activity Alcohol use: Not on file Drug use: Not on file Sexual activity: Not on file Lifestyle Physical activity: Days per week: Not on file Minutes per session: Not on file Stress: Not on file Relationships Social connections: Talks on phone: Not on file Gets together: Not on file Attends adventism service: Not on file Active member of club or organization: Not on file Attends meetings of clubs or organizations: Not on file Relationship status: Not on file Intimate partner violence: Fear of current or ex partner: Not on file Emotionally abused: Not on file Physically abused: Not on file Forced sexual activity: Not on file Other Topics Concern Not on file Social History Narrative Not on file REVIEW OF SYSTEMS: All remaining review of systems was negative except for as noted in the history of present illness/subjective. Objective PHYSICAL EXAMINATION: VITALS: BP 118/74 | Pulse 72 | Temp 98.6 F (37 C) | Ht 5' 11" ( 1.803 m) | Wt 249 lb 8 oz (113.2 kg) | BMI 34.80 kg/m Body mass index is 34.8 kg/m. GENERAL: alert, oriented, no acute distress. HEENT: No scleral icterus, MMM Psych: Affect normal Neck: no lymphadenopathy LUNGS: clear to auscultation bilaterally. HEART: regular rhythm, no murmurs, no gallops, no rubs. ABDOMEN: general exam: soft, non-tender, obese, normal active bowel sounds, Hernandez's sign negative. Extrmities: no edema Skin: clear Neuro: gait normal, a&o x 3 RECTAL: exam deferred. IMPRESSION: ICD-9-CM ICD-10-CM 1. Hepatic cyst 573.8 K76.89 US HEPATIC WITH DOPPLER The majority of asymptomatic simple cysts do not require treatment. Because of limited data on the natural history of asymptomatic simple cysts and because they have no malignant potential, simple cysts that are found incidentally do not require serial imaging. However given that his largest cyst is 4.6cm will follow and management prn. Plan PLAN: Patient Instructions 1. Will follow cyst to evaluate for evidence of change or growth in 6 months ( August-September 2019), growth of this is not anticipated. 2. Schedule a liver ultrasound in 6 months with a follow up office visit therafter Thank you for choosing the [facility] for your needs today! -Kortney Campbell N.P. , Please call if you need to cancel or change your appt. time. Thank you for choosing [facility] for your health care needs, and for consulting with [facility] today. You may receive a survey following this visit, or after an upcoming hospital stay. As easy as it is to feel overloaded with surveys, we are required to send them out randomly and they do provide important feedback so that we may serve your needs in the best way. Please do take the few minutes required to complete the survey if you receive one. We get them too, after seeing the doctor, and they only take a few minutes to complete. Patient Education Cysts in the Liver About this topic A liver cyst is an abnormal sac filled with fluid in the liver. If the cyst is large, you may have pain in your belly. Sometimes, you can feel the cyst through your belly. Cysts in the liver can develop slowly in early age and can be found during adult years. If you have simple liver cysts, you may not have any signs. Your liver may work normally. Some cysts may heal on their own. Your liver cysts may: Be present when you are born and are common during puberty. These can get bigger as your hormones change. You may have more than one cyst in your liver. Or may not be a kind of cancer. These are neoplastic cysts. This kind of cyst is rare and most often do not cause any signs. You may have vague signs and feel like your belly is full or have an upset stomach. Be caused by a parasite infection. These are hydatid cysts. There may be problems with these like pain, especially as the cyst grows. Be caused by other infections. This is an abscess. What are the causes? The exact cause of liver cysts is not known. They may be due to genetic problems or present from . This is called polycystic liver disease or PLD. The cysts may also be from an infection. Abnormalcell growth may cause some cysts. What are the main signs? Most liver cysts do not cause any signs. If they become large, they may cause the following signs: Swelling of your belly Pain in the upper right part of the belly Throwing up Problems in digestion Shoulder pain Enlarged liver How does the doctor diagnose this health problem? You doctor will take your history and do an exam. The doctor will check your belly to see if your liver or kidneys are large. The doctor will also check for tenderness and any growths on your liver or kidneys. You may need to have: Blood tests including liver function tests Ultrasound CT or MRI scan Biopsy of liver cyst How does the doctor treat this health problem? Most liver cysts do not need treatment. Your doctor may do a procedure to drain or remove the cysts if they are large, painful, or cause other problems. The doctor will try to find out if other illnesses may be causing your liver cysts. If the cause of the cysts is due to infection, your doctor may give you drugs to treat the infection. If the cysts become infected, cause serious problems, or a cancer develops , surgery may be needed. Although it is rare, a live transplant may be necessary for polycystic liver disease if the complications cannot be managed. What lifestyle changes are needed? If you are a smoker, stop smoking. If you have problems quitting, ask for help. Avoid drinking beer, wine, and mixed drinks (alcohol). Practice good personal hygiene to avoid parasitic infections. Keep a healthy weight. Exercise regularly. Eat a healthy diet. Eat foods low in fats like fruits, vegetables, whole grains, lean proteins,and low-fat dairy products. Avoid too much sugar. What drugs may be needed? The doctor may order drugs to: Fight an infection Where can I learn more? The [employer] Foundation http://www.thelivercarefoundation.org/?page=liver_cysts The [employer] http://www.liverfoundation.org/abouttheliver/info/livercysts/ Last Reviewed Date 2017-01-03 Consumer Information Use and Disclaimer This information is not specific medical advice and does not replace information you receive from your health care provider. This is only a brief summary of general information. It does NOT include allinformation about conditions, illnesses, injuries, tests, procedures, treatments, therapies, discharge instructions or life-style choices that may apply to you. You must talk with your health care provider for complete information about your health and treatment options. This information should not beused to decide whether or not to accept your health care providers advice, instructions or recommendations. Only your health care provider has the knowledge and training to provide advice that isright for you. Copyright Copyright 2018 [employer] and its affiliates and/or licensors. All rights reserved. Author: Kortney Campbell NP 06/01/2019 13:23 documented in this encounter Plan of Treatment Date Type Specialty Care Team Description 08/17/2019 Ancillary Procedure Radiology 11/20/2019 Office Visit Gastroenterology Kortney Campbell NP [address] [place] [address] [phone] Name Type Priority Associated Diagnoses Order Schedule US HEPATIC WITH DOPPLER Imaging Routine Hepatic cyst Expected: 06/01/2019, Expires: 06/01/2020 Health Maintenance Due Date Last Done Comments DEPRESSION SCREENING 1977 HIV SCREENING 1980 DIABETES SCREENING 1983 HEPATITIS C SCREENING 2005 COLONOSCOPY SCREENING 2015 ZOSTER IMMUNIZATION SERIES (1 of 2015 2) INFLUENZA VACCINE (#1) 2019 LIPID DISORDER SCREENING 05/10/2020 05/10/2019 HPV IMMUNIZATION SERIES Aged Out No longer eligible based on patient's age to complete this topic MENINGOCOCCAL VACCINE IMM Aged Out No longer eligible based on patient's age to complete this topic PNEUMOCOCCAL 0-64 YRS Aged Out No longer eligible based on patient's age to complete this topic documented as of this encounter Results Not on filedocumented in this encounter Visit Diagnoses Diagnosis Hepatic cyst - Primary Other specified disorders of liver documented in this encounter Insurance Payer Benefit Plan / Subscriber Effective Phone Address Type Group ID Dates [employer] Effective [employer] ADMINISTRATION for all Administration [facility] dates documented as of this encounter
[2019-07-06] MEDS ORDERED: LORazepam TAB(*) 1 MG PO ONE (13:47)
--- NOTE | 2019-07-06 14:31 | ED ---
Psychiatric Complaint - HPI Summary HPI Summary: This patient is a 54-year-old male with history of PTSD and severe anxiety presenting to the ED with an anxiety attack. He states he was giving blood here at [facility] when he began to have an anxiety attack and came to the emergency room. On arrival into the ED, he is unable to speak, due to his severe anxiety and is visibly shaking. He denies any other symptoms, denies any pain. Denies any shortness of breath, chest pain, headache or visual changes. He denies any nausea at this time. He states symptoms have been frequently and he gets chest pressure when they occur. He is a patient of the [facility] and takes multiple medications for his anxiety symptoms. When asked if he felt any thoughts of suicide, he pauses for approximately 1 minute then states "I don't want to answer that." - History Of Current Complaint Chief Complaint: EDGeneral Time Seen by Provider: 07/06/19 13:41 Hx Obtained From: Patient Onset/Duration: Sudden Onset Timing: Constant Severity Initially: Severe Severity Currently: Severe Character: Anxious Aggravating Factor(s): Nothing Alleviating Factor(s): Nothing Associated Signs And Symptoms: Positive: Negative Has Suicidal: Reports: Thoughts - possibly - Risk Factor(s) Completed Suicide Risk Factors: Male, White [place] - Allergies/Home Medications Allergies/Adverse Reactions: Allergies Allergy/AdvReac Type Severity Reaction Status Date / Time Seasonal Allergy Allergy Eyes Uncoded 07/06/19 13:30 Itchy/Swollen/Red/Watery PMH/Surg Hx/FS Hx/Imm Hx Previously Healthy: Yes Endocrine/Hematology History: Denies: Hx Diabetes, Hx Thyroid Disease Cardiovascular History: Reports: Hx Angina, Hx Hypercholesterolemia - statins, Hx Hypertension - as of 2017, still on HTN medications, some resolution in 2013 Respiratory History: Reports: Hx Asthma, Hx Sleep Apnea - 2L O2 at bedtime/ overnight, sleep study to follow in 2018 Denies: Hx Chronic Obstructive Pulmonary Disease (COPD) GI History: Reports: Hx Gastroesophageal Reflux Disease, Other GI Disorders - torchous colon Denies: Hx Ulcer History: Reports: Hx Benign Prostatic Hyperplasia Musculoskeletal History: Reports: Hx Arthritis, Hx Scoliosis, Other Musculoskeletal History - DDD cervical and thoracic spine Sensory History: Reports: Hx Contacts or Glasses, Hx Hearing Problem - Left Ear Denies: Hx Hearing Aid Opthamlomology History: Reports: Hx Contacts or Glasses Neurological History: Reports: Other Neuro Impairments/Disorders - HX OF DDD, pain clinic pt Psychiatric History: Reports: Hx Anxiety, Hx Depression, Hx Post Traumatic Stress Disorder - Surgical History Surgery Procedure, Year, and Place: Rhinoplasty. Tonsillectomy. [place] teeth - Immunization History Hx Pertussis Vaccination: No Immunizations Up to Date: Yes Infectious Disease History: No Infectious Disease History: Denies: Hx Clostridium Difficile, Hx Hepatitis, Hx Human Immunodeficiency Virus (HIV), Hx of Known/Suspected MRSA, Hx Shingles, Hx Tuberculosis, Hx Known/ Suspected VRE, Hx Known/Suspected VRSA, History Other Infectious Disease, Traveled Outside the [place] in Last 30 Days - Family History Known Family History: Positive: Cardiac Disease - father multiple [place], Other - cancer - Social History Occupation: Employed Full-time Lives: With Family Alcohol Use: None Hx Substance Use: No Substance Use Type: Reports: None Hx Tobacco Use: Yes Smoking Status (MU): Former Smoker Type: Smokeless Tobacco Amount Used/How Often: 1/2 tin per day Review of Systems Negative: Fever, Chills, Fatigue, Skin Diaphoresis Positive: Chest Pain - chets tightness associated with his anxiety symptoms. Negative: Palpitations Negative: Shortness Of Breath, Cough Genitourinary: Negative Positive: no symptoms reported, see HPI Negative: Arthralgia, Myalgia Skin: Negative Neurological: Negative Positive: Anxious All Other Systems Reviewed And Are Negative: Yes Physical Exam Triage Information Reviewed: Yes Vital Signs On Initial Exam: Initial Vitals Temp Pulse Resp BP Pulse Ox 98.5 F 107 20 123/83 96 07/06/19 13:25 07/06/19 13:25 07/06/19 13:25 07/06/19 13:25 07/06/19 13:25 Vital Signs Reviewed: Yes Appearance: Positive: Ill-Appearing - appears to be in distress related to anxiety attack Skin: Positive: Warm, Skin Color Reflects Adequate Perfusion Head/Face: Positive: Normal Head/Face Inspection Eyes: Positive: EOMI, TARA, Conjunctiva Clear Neck: Positive: Supple, No Lymphadenopathy Respiratory/Lung Sounds: Positive: Clear to Auscultation, Breath Sounds Present Cardiovascular: Positive: RRR, Pulses are Symmetrical in both Upper and Lower Extremities Neurological: Positive: Sensory/Motor Intact Psychiatric: Positive: Anxious Diagnostics - Vital Signs Vital Signs Temp Pulse Resp BP Pulse Ox 07/06/19 13:25 98.5 F 107 20 123/83 96 - Laboratory Lab Statement: Any lab studies that have been ordered have been reviewed, and results considered in the medical decision making process. Course/Dx - Course Course Of Treatment: On arrival into the ED, the patient appears very anxious and shaking. He states he is going through an anxiety attack and this happens frequently. His symptoms related to the anxiety attack usually only revolve some chest tightness which he is feeling currently. He states he follows up with the [facility] and he is on multiple medications for this, however he continues to have anxiety attacks intermittently. He usually 1-2 times a month. He states this is one of his "severe ones." When asked if he is suicidal, he states "I don't want to answer that." Discussed case with Darshan in [place] will complete a mental health evaluation. He is given 2mg ativan. - Differential Dx/Clinical Impression Differential Diagnosis/HQI/PQRI: Positive: Suicidal Ideation Provider Diagnosis: Anxiety, PTSD (post-traumatic stress disorder) Discharge ED - Sign-Out/Discharge Documenting (check all that apply): Sign-Out Patient Signing out patient TO: Gela Trinidad Patient Received Moderate/Deep Sedation with Procedure: No - Discharge Plan Condition: Good Disposition: HOME Referrals: Thang Diaz MD [Primary Care Provider] - - Billing Disposition and Condition Condition: GOOD Disposition: Home
--- NOTE | 2019-07-06 15:03 | ED ---
Progress - Progress Note Progress Note: patient signed out by Analy ARCEO pending MHE patient had a full MHE after initial declining. patient has appropriate out patient follow up and will be discharge per dr skaggs with anxiety. Re-Evaluation - Re-Evaluation First Eval Re-Evaluation Time: 15:02 Change: Improved Comment: feeling better, no plan for SI Second Eval Re-Evaluation Time: 15:26 Comment: wants full MHE Course/Dx - Course Course Of Treatment: On arrival into the ED, the patient appears very anxious and shaking. He states he is going through an anxiety attack and this happens frequently. His symptoms related to the anxiety attack usually only revolve some chest tightness which he is feeling currently. [facility] for this, however he continues to have anxiety attacks intermittently. He usually 1-2 times a month. He states this is one of his "severe ones." When asked if he is suicidal, he states "I don't want to answer that." Discussed case with Darshan Muñoz renae will complete a mental health evaluation. He is given 2mg ativan. Patient became very tired afterwards. Mental health did quick discussion with the patient and the patient doesn't not feel suicidal with a plan. Discuss getting a full MHE patient declined. He prefers to go home. patient then changed his mind and wants full MHE. MHE was performed. patient will be discharged per dr skaggs to follow up with therapist. patient understand and agrees with plan. - Diagnoses Provider Diagnoses: Anxiety, PTSD (post-traumatic stress disorder) Discharge ED - Sign-Out/Discharge Documenting (check all that apply): Patient Departure, Receiving Sign-Out Receiving patient FROM: Analy Workman Patient Received Moderate/Deep Sedation with Procedure: No - Discharge Plan Condition: Good Disposition: HOME Patient Education Materials: Anxiety (ED) Referrals: Thang Diaz MD [Primary Care Provider] - Additional Instructions: follow up with therapist make sure to stay hydrated today Return to ED if develop any new or worsening symptoms - Billing Disposition and Condition Condition: GOOD Disposition: Home
[2019-07-06 16:41] VITALS: BP 120/83
== END 2019-07-06 16:30 | disposition home or self-care (01) ==
LOC: ED 13:23
DX: F41.9 Anxiety disorder, unspecified (principal); F43.10 Post-traumatic stress disorder, unspecified; F32.9 Major depressive disorder, single episode, unspecified; E78.00 Pure hypercholesterolemia, unspecified; I10 Essential (primary) hypertension; K21.9 Gastro-esophageal reflux disease without esophagitis; N40.0 Benign prostatic hyperplasia without lower urinary tract symptoms; M50.30 Other cervical disc degeneration, unspecified cervical region; M51.34 Other intervertebral disc degeneration, thoracic region; Z87.891 Personal history of nicotine dependence; Z79.899 Other long term (current) drug therapy
CPT/HCPCS: 99285; A9270-GY

== ENCOUNTER 2019-09-02 18:03 | Emergency (ER) | payer OTHER ==
[2019-09-02 18:47] LABS: ABS Basophils 0.1 10^3/ul (0-0.2); ABS Eosinophils 0.1 10^3/ul (0-0.6); ABS Lymphocytes 1.4 10^3/ul (1.0-4.8); ABS Monocytes 0.7 10^3/ul (0-0.8); ABS Neutrophils 4.9 10^3/ul (1.5-7.7); Eosinophil % 1.9 %; Hematocrit 44 % (42-52); Hemoglobin 15.1 g/dL (14.0-18.0); Lymphocyte % 19.2 %; Mean Corpuscular HGB Conc 34 g/dL (31-36); Mean Corpuscular Hemoglobin 27 pg (27-31); Mean Corpuscular Volume 80 fL (80-94); Mean Platelet Volume 7.8 fL (7.4-10.4); Nucleated Red Blood Cells % 0.1; Platelet Count 221 10^3/uL (150-450); Red Blood Count 5.58 10^6 /uL (4.18-5.48); Red Cell Distribution Width 14 % (10-15); White Blood Count 7.1 10^3/uL (3.5-10.8)
[2019-09-02] MEDS ORDERED: LORazepam TAB(*) 1 MG PO ONE (19:02)
[2019-09-02 19:04] LABS: Albumin 4.6 g/dL (3.2-5.2); Calcium 9.8 mg/dL (8.6-10.3); Potassium 4.3 mmol/L (3.5-5.0); Total Bilirubin 0.3 mg/dL (0.2-1.0)
[2019-09-02 19:10] LABS: Albumin/Globulin Ratio 1.7 (1-3); BUN/Creatinine Ratio 13.9 (8-20); EGFR African American 93.1 (>60); Globulin 2.7 g/dL (2-4); Total Protein 7.3 g/dL (6.4-8.9)
[2019-09-02 19:12] LABS: CKMB ng/mL 1.4 ng/mL (0.6-6.3)
[2019-09-02 19:43] LABS: TSH (Thyroid Stimulating Horm) 3.65 mcIU/mL (0.34-5.60)
--- NOTE | 2019-09-02 19:58 | ED ---
Complex/Multi-Sys Presentation - HPI Summary HPI Summary: Patient is a 54 y/o M w/ Hx of PTSD and anxiety who presents to [facility] with complaints of chest pain, dizziness, tremors, and SOB. He attributes this presentation of Sx to his psychiatric issues. 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 No trigger event is noted. Patient is on sertaline, trazadone, amlodapine, and spiriva. On triage, pain is rated 5/10. Home medications and allergies are reviewed. - History Of Current Complaint Chief Complaint: EDChestPainROMI Time Seen by Provider: 09/02/19 18:18 Hx Obtained From: Patient Onset/Duration: Sudden Onset, Still Present Timing: Constant Severity Currently: Moderate Location: Pain At: - chest Associated Signs And Symptoms: Positive: Dizziness, SOB, Chest Pain, Other - positive - tremors - Allergies/Home Medications Allergies/Adverse Reactions: Allergies Allergy/AdvReac Type Severity Reaction Status Date / Time Seasonal Allergy Allergy Eyes Uncoded 07/06/19 13:30 Itchy/Swollen/Red/Watery Home Medications: Home Medications Albuterol HFA INHALER* [Ventolin HFA Inhaler*] 2 puff INH Q4H PRN 09/02/19 [ History Confirmed 09/02/19] Budesonide/Formote 160/4.5(NF) [Symbicort 160/4.5 (NF)] 1 puff INH DAILY [History Confirmed 09/02/19] Fluticasone NASAL SPRAY 50MCG* [Flonase NASAL SPRAY 50MCG*] 2 spray BOTH NARES DAILY 09/02/19 [History Confirmed 09/02/19] Montelukast Sodium TAB* [Singulair 10 MG TAB*] 10 mg PO DAILY 09/02/19 [History Confirmed 09/02/19] Naproxen [Naproxen 500 mg tab] 500 mg PO BID PRN 09/02/19 [History Confirmed ] Pantoprazole TAB * [Protonix TAB*] 40 mg PO DAILY 09/02/19 [History Confirmed ] Quetiapine Fumarate [Seroquel 50 mg tab] 50 mg PO DAILY 09/02/19 [History Confirmed 09/02/19] Sertraline HCl [Zoloft] 100 mg PO DAILY 09/02/19 [History Confirmed 09/02/19] clonazePAM [Clonazepam] 0.5 mg PO BEDTIME 09/02/19 [History Confirmed 09/02/19] PMH/Surg Hx/FS Hx/Imm Hx Endocrine/Hematology History: Denies: Hx Diabetes, Hx Thyroid Disease Cardiovascular History: Reports: Hx Angina, Hx Hypercholesterolemia - statins, Hx Hypertension - as of 2018, still on HTN medications, some resolution in 2013 Respiratory History: Reports: Hx Asthma, Hx Sleep Apnea - 2L O2 at bedtime/ overnight, sleep study to follow in 2018 Denies: Hx Chronic Obstructive Pulmonary Disease (COPD) GI History: Reports: Hx Gastroesophageal Reflux Disease, Other GI Disorders - torchous colon Denies: Hx Ulcer History: Reports: Hx Benign Prostatic Hyperplasia Musculoskeletal History: Reports: Hx Arthritis, Hx Scoliosis, Other Musculoskeletal History - DDD cervical and thoracic spine Sensory History: Reports: Hx Contacts or Glasses, Hx Hearing Problem - Left Ear Denies: Hx Hearing Aid Opthamlomology History: Reports: Hx Contacts or Glasses Neurological History: Reports: Other Neuro Impairments/Disorders - HX OF DDD, pain clinic pt Psychiatric History: Reports: Hx Anxiety, Hx Depression, Hx Post Traumatic Stress Disorder Denies: Hx Eating Disorder, Hx of Violent Episodes Against Others - Surgical History Surgery Procedure, Year, and Place: Rhinoplasty. Tonsillectomy. [place] teeth Infectious Disease History: No Infectious Disease History: Denies: Hx Clostridium Difficile, Hx Hepatitis, Hx Human Immunodeficiency Virus (HIV), Hx of Known/Suspected MRSA, Hx Shingles, Hx Tuberculosis, Hx Known/ Suspected VRE, Hx Known/Suspected VRSA, History Other Infectious Disease, Traveled Outside the [place] in Last 30 Days - Family History Known Family History: Positive: Cardiac Disease - father multiple [place], Other - cancer - Social History Alcohol Use: None Hx Substance Use: No Substance Use Type: Reports: None Hx Tobacco Use: Yes Smoking Status (MU): Former Smoker Type: Smokeless Tobacco Amount Used/How Often: 1/2 tin per day Review of Systems Constitutional: Other - positive - tremors Positive: Chest Pain Positive: Shortness Of Breath Neurological: Other - positive - dizziness All Other Systems Reviewed And Are Negative: Yes Physical Exam - Summary Physical Exam Summary: VITAL SIGNS: Reviewed. GENERAL: Patient is a well-developed and nourished male who is lying in the stretcher. He is nervous-appearing. Patient is not in any acute respiratory distress. HEAD AND FACE: No signs of trauma. No ecchymosis, hematomas or skull depressions. No sinus tenderness. EYES: PERRLA, EOMI x 2, No injected conjunctiva, no nystagmus. EARS: Hearing grossly intact. Ear canals and tympanic membranes are within normal limits. MOUTH: Oropharynx within normal limits. NECK: Supple, trachea is midline, no adenopathy, no JVD, no carotid bruit, no c- spine tenderness, neck with full ROM. CHEST: Symmetric, no tenderness at palpation. LUNGS: Clear to auscultation bilaterally. No wheezing or crackles. CVS: Regular rate and rhythm, S1 and S2 present, no murmurs or gallops appreciated. ABDOMEN: Soft, non-tender. No signs of distention. No rebound, no guarding, and no masses palpated. Bowel sounds are normal. EXTREMITIES: FROM in all major joints, no edema, no cyanosis or clubbing. NEURO: Alert and oriented x 3. No acute neurological deficits. Speech is normal and follows commands. SKIN: Dry and warm. Triage Information Reviewed: Yes Vital Signs On Initial Exam: Initial Vitals Temp Pulse Resp BP Pulse Ox 98.7 F 114 16 161/100 95 09/02/19 18:06 09/02/19 18:06 09/02/19 18:06 09/02/19 18:06 09/02/19 18:06 Vital Signs Reviewed: Yes Procedures - Sedation Patient Received Moderate/Deep Sedation with Procedure: No Diagnostics - Vital Signs Vital Signs Temp Pulse Resp BP Pulse Ox 09/02/19 19:29 16 09/02/19 19:00 91 93 09/02/19 18:22 94 92 09/02/19 18:06 98.7 F 114 16 161/100 95 - Laboratory Lab Results: Lab Results 09/02/19 09/02/19 09/02/19 Range/Units 18:41 18:41 18:41 WBC 7.1 (3.5-10.8) 10^3/uL RBC 5.58 H (4.18-5.48) 10^6 /uL Hgb 15.1 (14.0-18.0) g/dL Hct 44 (42-52) % MCV 80 (80-94) fL MCH 27 (27-31) pg MCHC 34 (31-36) g/dL RDW 14 (10-15) % Plt Count 221 (150-450) 10^3/uL MPV 7.8 (7.4-10.4) fL Neut % (Auto) 68.6 % Lymph % (Auto) 19.2 % [place] % (Auto) 9.6 % Eos % (Auto) 1.9 % Baso % (Auto) 0.7 % Absolute Neuts (auto) 4.9 (1.5-7.7) 10^3/ul Absolute Lymphs (auto) 1.4 (1.0-4.8) 10^3/ul Absolute Monos (auto) 0.7 (0-0.8) 10^3/ul Absolute Eos (auto) 0.1 (0-0.6) 10^3/ul Absolute Basos (auto) 0.1 (0-0.2) 10^3/ul Absolute Nucleated RBC 0.0 10^3/ul Nucleated RBC % 0.1 Sodium 135 (135-145) mmol/L Potassium 4.3 (3.5-5.0) mmol/L Chloride 103 (101-111) mmol/L Carbon Dioxide 24 (22-32) mmol/L Anion Gap 8 (2-11) mmol/L BUN 14 (6-24) mg/dL Creatinine 1.01 (0.67-1.17) mg/dL Est GFR ( Amer) 93.1 (>60) Est GFR (Non-Af Amer) 77.0 (>60) BUN/Creatinine Ratio 13.9 (8-20) Glucose 115 H (70-100) mg/dL Lactic Acid 1.3 (0.5-2.0) mmol/L Calcium 9.8 (8.6-10.3) mg/dL Magnesium 2.0 (1.9-2.7) mg/dL Total Bilirubin 0.30 (0.2-1.0) mg/dL AST 18 (13-39) U/L ALT 29 (7-52) U/L Alkaline Phosphatase 171 H (34-104) U/L Total Creatine Kinase 113 (10-223) U/L CK-MB (CK-2) 1.4 (0.6-6.3) ng/mL Troponin I 0.00 (<0.03) ng/mL B-Natriuretic Peptide (<=100) pg/mL Total Protein 7.3 (6.4-8.9) g/dL Albumin 4.6 (3.2-5.2) g/dL Globulin 2.7 (2-4) g/dL Albumin/Globulin Ratio 1.7 (1-3) TSH Pending 09/02/19 Range/Units 18:41 WBC (3.5-10.8) 10^3/uL RBC (4.18-5.48) 10^6 /uL Hgb (14.0-18.0) g/dL Hct (42-52) % MCV (80-94) fL MCH (27-31) pg MCHC (31-36) g/dL RDW (10-15) % Plt Count (150-450) 10^3/uL MPV (7.4-10.4) fL Neut % (Auto) % Lymph % (Auto) % [place] % (Auto) % Eos % (Auto) % Baso % (Auto) % Absolute Neuts (auto) (1.5-7.7) 10^3/ul Absolute Lymphs (auto) (1.0-4.8) 10^3/ul Absolute Monos (auto) (0-0.8) 10^3/ul Absolute Eos (auto) (0-0.6) 10^3/ul Absolute Basos (auto) (0-0.2) 10^3/ul Absolute Nucleated RBC 10^3/ul Nucleated RBC % Sodium (135-145) mmol/L Potassium (3.5-5.0) mmol/L Chloride (101-111) mmol/L Carbon Dioxide (22-32) mmol/L Anion Gap (2-11) mmol/L BUN (6-24) mg/dL Creatinine (0.67-1.17) mg/dL Est GFR ( Amer) (>60) Est GFR (Non-Af Amer) (>60) BUN/Creatinine Ratio (8-20) Glucose (70-100) mg/dL Lactic Acid (0.5-2.0) mmol/L Calcium (8.6-10.3) mg/dL Magnesium (1.9-2.7) mg/dL Total Bilirubin (0.2-1.0) mg/dL AST (13-39) U/L ALT (7-52) U/L Alkaline Phosphatase (34-104) U/L Total Creatine Kinase (10-223) U/L CK-MB (CK-2) (0.6-6.3) ng/mL Troponin I (<0.03) ng/mL B-Natriuretic Peptide 7 (<=100) pg/mL Total Protein (6.4-8.9) g/dL Albumin (3.2-5.2) g/dL Globulin (2-4) g/dL Albumin/Globulin Ratio (1-3) TSH Result Diagrams: 09/02/19 18:41 09/02/19 18:41 Lab Statement: Any lab studies that have been ordered have been reviewed, and results considered in the medical decision making process. - Radiology CXR Radiology Interpretation Completed By: ED Physician Summary of Radiographic Findings: No acute pathology, pending official report. - EKG 1809 Cardiac Rate: NL - rate of 89 BPM EKG Rhythm: Sinus Rhythm Summary of EKG Findings: EKG showed NSR with rate of 89 BPM, no ST elevations, normal axis. This EKG was reviewed and interpreted by Dr. Arteaga. Re-Evaluation - Re-Evaluation First Eval Re-Evaluation Time: 21:56 Change: Improved Comment: Patient's Sx are improved after ativan. I discussed all the findings and test results with the patient. Patient was instructed to return to the emergency room immediately if any of the symptoms return worsens. Plan of care was discussed with the patient and understands and agrees. All questions were answered at patient satisfaction. There were no further complaints or concerns. Lung exam before discharge: CTA B/L. Good air exchange. No wheezing or crackles heard. CVS: S1 and S2 present. No murmurs appreciated. Patient is alert and oriented x 3. Patient is hemodynamically stable. Patient will be discharged home with follow up PCP in the next 2-3 days Complex Multi-Symp Course/Dx Assessment/Plan: This patient is a 54-year-old male who presents to the emergency department with a chief complaint: Anxiety, chest pain and dizziness. He reports that the symptoms are secondary to his PTSD and panic attacks. Blood test results without any significant abnormality except for glucose of 1: 15 and alkaline phosphatase of 178. Troponin is 0.00. Chest x-ray shows no acute pathology. In the ED course the patient was given 1 dose of Ativan and his symptoms significantly improve improved. Second troponin is 0.00. The heart to score is equal to 2. I discussed all the findings and test results with the patient. Patient was instructed to return to the emergency room immediately if any of the symptoms return worsens. Plan of care was discussed with the patient and understands and agrees. All questions were answered at patient satisfaction. There were no further complaints or concerns. Lung exam before discharge: CTA B/L. Good air exchange. No wheezing or crackles heard. CVS : S1 and S2 present. No murmurs appreciated. Patient is alert and oriented x 3. Patient is hemodynamically stable. Patient will be discharged home with follow up PCP in the next 2-3 days - Diagnoses Differential Diagnoses/HQI/PQRI: Cardiac Ischemia, Urinary Tract Infection Provider Diagnoses: Anxiety Discharge ED - Sign-Out/Discharge Documenting (check all that apply): Patient Departure - discharge - Discharge Plan Condition: Stable Disposition: HOME Patient Education Materials: Anxiety (ED) Referrals: Thang Diaz MD [Primary Care Provider] - 3 Days Additional Instructions: PLEASE RETURN TO ED FOR ANY NEW OR WORSENING SYMPTOMS. PLEASE FOLLOW UP WITH YOUR PRIMARY CARE PHYSICIAN WITHIN THREE DAYS. - Billing Disposition and Condition Condition: STABLE Disposition: Home - Attestation Statements Document Initiated by Jany: Yes Documenting Scribe: IMTIAZ LINDA Provider For Whom Jany is Documenting (Include Credential): KATHE ARTEAGA MD Scribe Attestation: IIMTIAZ, scribed for KATHE ARTEAGA MD on 09/03/19 at 1247. Scribe Documentation Reviewed: Yes Provider Attestation: The documentation as recorded by the IMTIAZ dickinson accurately reflects the service I personally performed and the decisions made by me, KATHE ARTEAGA MD Status of Scribiesha Document: Viewed
[2019-09-02 22:24] VITALS: BP 137/86
== END 2019-09-02 22:24 | disposition home or self-care (01) ==
LOC: ED 18:03
DX: F41.9 Anxiety disorder, unspecified (principal); F43.10 Post-traumatic stress disorder, unspecified; E78.00 Pure hypercholesterolemia, unspecified; I10 Essential (primary) hypertension; J45.909 Unspecified asthma, uncomplicated; K21.9 Gastro-esophageal reflux disease without esophagitis; N40.0 Benign prostatic hyperplasia without lower urinary tract symptoms; Z87.891 Personal history of nicotine dependence; Z79.899 Other long term (current) drug therapy
CPT/HCPCS: 36415; 71045; 80053; 82550; 82553; 83605; 83735; 83880; 84443; 84484; 85025; 93005; 99283; A9270-GY

== ENCOUNTER 2019-10-10 12:46 | Emergency (ER) | payer OTHER ==
[2019-10-10] MEDS ORDERED: LORazepam TAB(*) 1 MG PO ONE (13:22)
[2019-10-10 15:36] VITALS: BP 109/80
--- NOTE | 2019-10-10 17:32 | ED ---
Psychiatric Complaint - History Of Current Complaint Chief Complaint: EDPsychosocial Time Seen by Provider: 10/10/19 13:11 - Allergies/Home Medications Allergies/Adverse Reactions: Allergies Allergy/AdvReac Type Severity Reaction Status Date / Time Seasonal Allergy Allergy Eyes Uncoded 07/06/19 13:30 Itchy/Swollen/Red/Watery Home Medications: Home Medications Aspirin [Rhonda Aspirin EC Low Dose 81 MG] 81 mg PO 10/10/19 [History] Simethicone [Gas Relief] 80 mg PO BID 10/10/19 [History Confirmed 10/10/19] hydrOXYzine HCL [Hydroxyzine HCl] 50 mg PO BID 10/10/19 [History Confirmed 10/10] PMH/Surg Hx/FS Hx/Imm Hx Endocrine/Hematology History: Denies: Hx Diabetes, Hx Thyroid Disease Cardiovascular History: Reports: Hx Angina, Hx Hypercholesterolemia - statins, Hx Hypertension - as of 2017, still on HTN medications, some resolution in 2013 Respiratory History: Reports: Hx Asthma, Hx Sleep Apnea - 2L O2 at bedtime/ overnight, sleep study to follow in 2018 Denies: Hx Chronic Obstructive Pulmonary Disease (COPD) GI History: Reports: Hx Gastroesophageal Reflux Disease, Other GI Disorders - torchous colon Denies: Hx Ulcer History: Reports: Hx Benign Prostatic Hyperplasia Musculoskeletal History: Reports: Hx Arthritis, Hx Scoliosis, Other Musculoskeletal History - DDD cervical and thoracic spine Sensory History: Reports: Hx Contacts or Glasses, Hx Hearing Problem - Left Ear Denies: Hx Hearing Aid Opthamlomology History: Reports: Hx Contacts or Glasses Neurological History: Reports: Other Neuro Impairments/Disorders - HX OF DDD, pain clinic pt Psychiatric History: Reports: Hx Anxiety, Hx Depression, Hx Post Traumatic Stress Disorder Denies: Hx Eating Disorder, Hx of Violent Episodes Against Others - Surgical History Surgery Procedure, Year, and Place: Rhinoplasty. Tonsillectomy. [place] teeth Infectious Disease History: No Infectious Disease History: Denies: Hx Clostridium Difficile, Hx Hepatitis, Hx Human Immunodeficiency Virus (HIV), Hx of Known/Suspected MRSA, Hx Shingles, Hx Tuberculosis, Hx Known/ Suspected VRE, Hx Known/Suspected VRSA, History Other Infectious Disease, Traveled Outside the [place] in Last 30 Days - Family History Known Family History: Positive: Cardiac Disease - father multiple [place], Other - cancer - Social History Alcohol Use: None Hx Substance Use: No Substance Use Type: Reports: None Hx Tobacco Use: Yes Smoking Status (MU): Former Smoker Type: Smokeless Tobacco Amount Used/How Often: 1/2 tin per day Physical Exam Vital Signs On Initial Exam: Initial Vitals Temp Pulse Resp BP Pulse Ox 97.2 F 118 16 173/99 96 10/10/19 12:46 10/10/19 12:46 10/10/19 12:46 10/10/19 12:46 10/10/19 12:46 Diagnostics - Vital Signs Vital Signs Temp Pulse Resp BP Pulse Ox 10/10/19 15:35 98.4 F 99 16 109/80 94 10/10/19 13:26 18 10/10/19 12:46 97.2 F 118 16 173/99 96 - Laboratory Lab Statement: Any lab studies that have been ordered have been reviewed, and results considered in the medical decision making process. Discharge ED - Discharge Plan Condition: Stable Disposition: HOME Patient Education Materials: Social Anxiety Disorder (ED) Referrals: Thang Diaz MD [Primary Care Provider] - Additional Instructions: Please follow up with Dr. Diaz as scheduled - Billing Disposition and Condition Condition: STABLE Disposition: Home
== END 2019-10-10 15:35 | disposition home or self-care (01) ==
LOC: ED 12:46
DX: F41.8 Other specified anxiety disorders (principal); Z87.891 Personal history of nicotine dependence; F32.9 Major depressive disorder, single episode, unspecified; F43.10 Post-traumatic stress disorder, unspecified; E78.00 Pure hypercholesterolemia, unspecified; I10 Essential (primary) hypertension; K21.9 Gastro-esophageal reflux disease without esophagitis; Z79.82 Long term (current) use of aspirin; Z79.899 Other long term (current) drug therapy
CPT/HCPCS: 99283; A9270-GY

== ENCOUNTER 2019-10-11 10:55 | Emergency (ER) | payer OTHER ==
--- NOTE | 2019-10-11 11:57 | ED ---
Psychiatric Complaint - HPI Summary HPI Summary: This pt is a 53 Y/O M presenting to [facility] from Dr. Noel office due to SOB that occurred [employer]. He states that he became anxious and was unable to calm himself down. He states that he is seen by Dr. Brooks, psychiatrist, who helps him with therapy and also prescribes his daily medications. He states that he has a recently medication change from Lorazepam and was being tapered off. He currently takes .5 mgs of Lorazepam daily. He states that he became anxious due to people around him. He was here yesterday due to a birthday constitution party for his Grandson. He was [facility] the [facility] by [facility] Diaz who then sent the pt to [facility]. He denies any recent illness such as fevers, chills, SI, HI, and N/V. He states no alleviating factors. He states that he has a PMHx of PTSD. - History Of Current Complaint Chief Complaint: EDPsychosocial Time Seen by Provider: 10/11/19 11:34 Hx Obtained From: Patient Onset/Duration: Sudden Onset Timing: Constant Severity Initially: Moderate Severity Currently: Moderate Character: Anxious Aggravating Factor(s): Other - states that someone "set me off", medication change to taper off lorazepam Alleviating Factor(s): Nothing Related History: Positive For: Prior Psychiatric Issues - PTSD Has Suicidal: Denies: Thoughts, With A Plan Has Homicidal: Denies: Thoughts, With A Plan - Allergies/Home Medications Allergies/Adverse Reactions: Allergies Allergy/AdvReac Type Severity Reaction Status Date / Time Seasonal Allergy Allergy Eyes Uncoded 07/06/19 13:30 Itchy/Swollen/Red/Watery Home Medications: Home Medications Albuterol 2.5MG/3ML (0.083%)* [Ventolin 2.5 MG/3 ML NEB.COLTON*] 2.5 mg INH QID PRN 10/11/19 [History Confirmed 10/11/19] Erythromycin OPTH OINT* [Erythromycin 0.5% OPTH OINT*] 1 applic BOTH EYES Q6H [History Confirmed 10/11/19] Meclizine TAB* [Antivert 12.5 TAB*] 12.5 mg PO QID PRN 10/11/19 [History Confirmed 10/11/19] Vitamin E CAP* 200 unit PO DAILY 10/11/19 [History Confirmed 10/11/19] PMH/Surg Hx/FS Hx/Imm Hx Endocrine/Hematology History: Denies: Hx Diabetes, Hx Thyroid Disease Cardiovascular History: Reports: Hx Angina, Hx Hypercholesterolemia - statins, Hx Hypertension - as of 2017, still on HTN medications, some resolution in 2013 Respiratory History: Reports: Hx Asthma, Hx Sleep Apnea - 2L O2 at bedtime/ overnight, sleep study to follow in 2018 Denies: Hx Chronic Obstructive Pulmonary Disease (COPD) GI History: Reports: Hx Gastroesophageal Reflux Disease, Other GI Disorders - torchous colon Denies: Hx Ulcer History: Reports: Hx Benign Prostatic Hyperplasia Musculoskeletal History: Reports: Hx Arthritis, Hx Scoliosis, Other Musculoskeletal History - DDD cervical and thoracic spine Sensory History: Reports: Hx Contacts or Glasses, Hx Hearing Problem - Left Ear Denies: Hx Hearing Aid Opthamlomology History: Reports: Hx Contacts or Glasses Neurological History: Reports: Other Neuro Impairments/Disorders - HX OF DDD, pain clinic pt Psychiatric History: Reports: Hx Anxiety, Hx Depression, Hx Post Traumatic Stress Disorder Denies: Hx Eating Disorder, Hx of Violent Episodes Against Others - Cancer History Hx Chemotherapy: No Hx Radiation Therapy: No - Surgical History Surgical History: Yes Surgery Procedure, Year, and Place: Rhinoplasty. Tonsillectomy. [place] teeth - Immunization History Immunizations Up to Date: Yes Infectious Disease History: No Infectious Disease History: Denies: Hx Clostridium Difficile, Hx Hepatitis, Hx Human Immunodeficiency Virus (HIV), Hx of Known/Suspected MRSA, Hx Shingles, Hx Tuberculosis, Hx Known/ Suspected VRE, Hx Known/Suspected VRSA, History Other Infectious Disease, Traveled Outside the [place] in Last 30 Days - Family History Known Family History: Positive: Cardiac Disease - father multiple RI, Other - cancer - Social History Occupation: Disabled Lives: With Family Alcohol Use: None Hx Substance Use: No Substance Use Type: Reports: None Hx Tobacco Use: Yes Smoking Status (MU): Never Smoked Tobacco Type: Smokeless Tobacco Amount Used/How Often: 1/2 tin per day Household Exposure: No Review of Systems Negative: Fever, Chills Positive: Shortness Of Breath Negative: Vomiting, Nausea Psychological: Other - NEGATIVE: SI and HI Positive: Anxious All Other Systems Reviewed And Are Negative: Yes Physical Exam - Summary Physical Exam Summary: Appearance: The patient is well-nourished in no acute distress and in no acute pain. Skin: The skin is warm and dry and skin color reflects adequate perfusion. HEENT: The head is normocephalic and atraumatic. The pupils are equal and reactive. The conjunctivae are clear and without drainage. Nares are patent and without drainage. Mouth reveals moist mucous membranes and the throat is without erythema and exudate. The external ears are intact. The ear canals are patent and without drainage. The tympanic membranes are intact. Neck: The neck is supple with full range of motion and non-tender. There are no carotid bruits. There is no neck vein distension. Respiratory: Chest is non-tender. Lungs are clear to auscultation and breath sounds are symmetrical and equal. Cardiovascular: Heart is regular rate and rhythm. There is no murmur or rub auscultated. There is no peripheral edema and pulses are symmetrical and equal. Abdomen: The abdomen is soft and non-tender. There are normal bowel sounds heard in all four quadrants and there is no organomegaly palpated. Musculoskeletal: There is no back tenderness noted. Extremities are non-tender with full range of motion. There is good capillary refill. There is no peripheral edema or calf tenderness elicited. Neurological: Patient is alert and oriented to person, place and time. The patient has symmetrical motor strength in all four extremities. Cranial nerves are grossly intact. Deep tendon reflexes are symmetrical and equal in all four extremities. Psychiatric: The patient has an appropriate affect and does exhibit any anxiety but not depression. Triage Information Reviewed: Yes Vital Signs On Initial Exam: Initial Vitals Temp Pulse Resp BP Pulse Ox 98.5 F 101 18 125/94 96 10/11/19 10:57 10/11/19 10:57 10/11/19 10:57 10/11/19 10:57 10/11/19 10:57 Vital Signs Reviewed: Yes Procedures - Sedation Patient Received Moderate/Deep Sedation with Procedure: No Diagnostics - Vital Signs Vital Signs Temp Pulse Resp BP Pulse Ox 10/11/19 11:41 131/96 10/11/19 10:57 98.5 F 101 18 125/94 96 - Laboratory Lab Statement: Any lab studies that have been ordered have been reviewed, and results considered in the medical decision making process. Re-Evaluation - Re-Evaluation First Eval Re-Evaluation Time: 12:00 Change: Unchanged Comment: Pt states that Ativan helps with his anxiety. Course/Dx - Course Course Of Treatment: Mr. Rubi has been taking Klonopin for anxiety. He cannot tell me how long. He recently was cut down from 1 mg to 0.5 mg a day and hydroxyzine was admitted. I'm not sure why he is being weaned. Yesterday he presented in a panic attack and was had a mental health eval. They felt that he was stable and reliable and discharged. Today he [facility] up with [facility] and reported a panic attack when he arrived. They transferred him here. He was nontoxic in appearance with stable vital signs. He was given Ativan by mouth and improved significantly. I recommended he follow up with the [facility] to consider slowing his taper. - Differential Dx/Clinical Impression Provider Diagnosis: Panic attack Discharge ED - Sign-Out/Discharge Documenting (check all that apply): Patient Departure - discharge - Discharge Plan Condition: Stable Disposition: HOME Patient Education Materials: Panic Attack (ED) Print Language: ARMENIAN Referrals: Thang Diaz MD [Primary Care Provider] - - Billing Disposition and Condition Condition: STABLE Disposition: Home - Attestation Statements Document Initiated by Scribe: Yes Documenting Scribe: Arnold Holden Provider For Whom Scribe is Documenting (Include Credential): Daniele Keating MD Scribe Attestation: I, Arnold Holden, scribed for Daniele Keating MD on 10/11/19 at 1904. Scribe Documentation Reviewed: Yes Provider Attestation: The documentation as recorded by the Arnold dickinson accurately reflects the service I personally performed and the decisions made by me, Daniele Keating MD Status of Scribe Document: Viewed
[2019-10-11] MEDS: LORazepam TAB(*) 1 MG PO ONE (12:03)
[2019-10-11 13:49] VITALS: BP 127/89
== END 2019-10-11 13:49 | disposition home or self-care (01) ==
LOC: ED 10:55
DX: F41.0 Panic disorder [episodic paroxysmal anxiety] (principal); E78.00 Pure hypercholesterolemia, unspecified; I10 Essential (primary) hypertension; J45.909 Unspecified asthma, uncomplicated; K21.9 Gastro-esophageal reflux disease without esophagitis; N40.0 Benign prostatic hyperplasia without lower urinary tract symptoms; F43.10 Post-traumatic stress disorder, unspecified; F32.9 Major depressive disorder, single episode, unspecified; F17.290 Nicotine dependence, other tobacco product, uncomplicated; Z79.899 Other long term (current) drug therapy
CPT/HCPCS: 99283; A9270-GY

== ENCOUNTER 2019-12-20 15:19 | Emergency (ER) | payer OTHER ==
--- OUTSIDE RECORDS SUMMARY | 2019-12-20 15:41 | XMS REPORT | Summary of Care ---
:1965 Author Organization [facility] Address [address] [facility] [place] [address] Care Team Providers Name Role Phone Yadira Tran TELEVISION SCHEDULE COORDINATOR Primary Care Provider Reason for Referral MRI/CAT/PET Scan (Routine) Status Reason Specialty Diagnoses / Referred By Referred To Procedures Contact Contact Pending Review Diagnoses Dilated cbd, acquired Abnormal US (ultrasound) of abdomen [facility] CT ABDOMEN WITHOUT AND WITH IV CONTRAST Kortney Gilmore NP [address] [place] [address] Reason for Visit Reason Comments Follow-up Follow-up on hepatic cyst & US abdomen in 08/2019. Encounter Details Date Type Department Care Team Description 11/19/2019 Office Visit [facility] Liver cyst (Primary Dx); Gastroenterology/Hepa Kortney Gilmore NP Dilated cbd, acquired; tology [address] Abnormal US (ultrasound) of abdomen [address] [facility] [place] [address] [place] [address] Allergies Active Allergy Reactions Severity Noted Date Comments Bee Venom Unknown Reaction 05/28/2019 Duloxetine Hcl Unknown Reaction 05/10/2019 documented as of this encounter (statuses as of 11/19/2019) Medications Medication Sig Dispensed Refills Start End Date Status Date ciprofloxacin-dexame Place 4 Drops 0 Active thasone (CIPRODEX) into both ears 0.3-0.1 % Otic ONE TIME. Suspension clonazePAM Take 0.5 mg by 0 Active (KLONOPIN) 0.5 MG mouth TWICE Oral Tab DAILY. albuterol Take 2 Puffs 0 Active (PROVENTIL,VENTOLIN) by inhalation 90 mcg/act FOUR TIMES DAILY. budesonide-formotero Take 2 INHL by [...] Active 50 MG Oral Tab mouth DAILY. Spacer/Aero-Holding by Does not 0 Active Chambers apply route. (AEROCHAMBER MINI CHAMBER) Does not apply Device amLodipine (NORVASC) Take 10 mg by 0 Active 10 MG Oral Tab mouth DAILY. Cholecalciferol Take 1 Cap by 0 Active (VITAMIN D-3) 1000 mouth DAILY. units Oral Cap cetirizine (ZYRTEC) Take 10 mg by 0 Active 10 MG Oral Tab mouth DAILY. fluticasone Latexo 2 Sprays 0 Active (FLONASE) 50 MCG/ACT in nose TWICE Nasal Suspension DAILY. naproxen (NAPROSYN) Take 250 mg by 0 Active 250 MG Oral Tab mouth TWO TIMES DAILY NEEDED. Polyethylene Glycol 17 g by Does 0 Active 3350 Does not apply not apply Powder route DAILY. tiotropium (SPIRIVA Take 18 mcg by 0 Active HANDIHALER) 18 MCG inhalation Inhalation Cap DAILY. Tamsulosin HCl Take 1 Cap by 30 Cap 3 Active (FLOMAX) 0.4 MG Oral mouth DAILY. 0 Cap terazosin (HYTRIN) 1 Take 3 mg by 0 11/19/19 Discontinued MG Oral Cap mouth DAILY. 20 (Error) documented as of this encounter (statuses as of 11/19/2019) Active Problems Problem Noted Date Sinusitis 05/28/2019 [...] as of this encounter (statuses as of 11/19/2019) Social History Tobacco Use Types Packs/Day Years [...] Sign Reading Time Taken Comments Blood Pressure 118/72 11/19/2019 7:39 AM EST Pulse 72 11/19/2019 7:39 AM EST Temperature 36.9 11/19/2019 7:39 AM EST C (98.5 F) Respiratory Rate - - Oxygen Saturation - - Inhaled Oxygen Concentration - - Weight 116.1 kg (256 lb) 11/19/2019 7:39 AM EST Height 180.3 cm (5' 11") 11/19/2019 7:39 AM EST Body Mass Index 35.7 11/19/2019 7:39 AM EST documented in this encounter Patient Instructions Patient InstructionsKortney Campbell NP - 11/19/2019 7:40 AM EST1. Will need additional imaging of the common bile duct (may need Ativan prior to exam) 2. Follow up after the above If you have not already been screened for Hepatitis C we would be happy to do that for you today. Currently we recommend screening for hepatitis C virus (HCV ) infection in persons at high risk for infection, and to adults born between 1945 and 1965. Thank you for choosing the [facility] for your needs today! -Kortney Campbell N.P. , Please call if you need to cancel or change your appt. time. Thank you for choosing [facility] for your health care needs, and for consulting with [facility] today. You may receive a survey following [...] only take a few minutes to complete. documented in this encounter Progress Notes Kortney Campbell NP - 11/19/2019 7:40 AM EST PATIENT: Cristhian Rubi : 1965 DATE OF SERVICE: 11/19/2019 REFERRING PRACTITIONER: Kortney Campbell PRIMARY CARE PROVIDER: Yadiar Tran CHIEF COMPLAINT: Chief Complaint Patient presents with Follow-up Follow-up on hepatic cyst & US abdomen in 08/2019. Subjective HISTORY OF PRESENT ILLNESS: Cristhian Rubi is a 54-y.o. male who presents for follow-up of liver cyst imaging. Recent US shows stability of the liver cysts however the CBD appears to be dilated more than on previous exam. Denies abdominal pain,heartburn, dysphagia, fatigue, nausea, vomiting, melena, hamatemesis, hematochezia, constipation, diarrhea, jaundice, fevers, chills, night sweats, weight loss, easy bruising, chest pain, shortness of breath, dysuria, hematuria, pyuria, joint pains, acholic stools, dark urine or systemic pruritis. Current Outpatient Medications Medication Sig albuterol (PROVENTIL,VENTOLIN) [...] DAILY. fluticasone (FLONASE) 50 MCG/ACT Nasal Suspension Latexo 2 Sprays in nose TWICE DAILY. gabapentin [...] apply Device by Does not apply route. Tamsulosin HCl (FLOMAX) 0.4 MG Oral Cap Take 1 Cap by mouth DAILY. tiotropium (SPIRIVA HANDIHALER) 18 MCG Inhalation Cap Take 18 mcg by inhalation DAILY. No current facility-administered medications for this visit. Allergies Allergen Reactions Bee Venom Unknown Reaction Cymbalta [Duloxetine Hcl] Unknown Reaction REVIEW OF SYSTEMS: All remaining review of systems was negative except for as noted in the history of present illness/subjective. Objective PHYSICAL EXAMINATION: VITALS: BP 118/72 | Pulse 72 | Temp 98.5 F (36.9 C) | Ht 5' 11" ( 1.803 m) | Wt 256 lb (116.1 kg) | BMI 35.70 kg/m Body mass index is 35.7 kg/m. GENERAL: alert, oriented, no acute distress. HEENT: No scleral icterus, MMM Psych: Affect normal Neck: no lymphadenopathy LUNGS: clear to auscultation bilaterally. HEART: regular rhythm, no murmurs, no gallops, no rubs. ABDOMEN: general exam: soft, non-tender, protuberant, normal active bowel sounds, Hernandez's sign negative. Extrmities: no edema Skin: clear Neuro: gait normal, a&o x 3 RECTAL: exam deferred. IMPRESSION: ICD-9-CM ICD-10-CM 1. Dilated cbd, acquired 576.[address] ABDOMEN WITHOUT AND WITH IV CONTRAST 2. Abnormal US (ultrasound) of abdomen 793.[address] ABDOMEN WITHOUT AND WITH IV CONTRAST Plan PLAN: Patient Instructions 1. Will need additional imaging of the common bile duct (may need Ativan prior to exam) 2. Follow up after the above If you have not already been screened for Hepatitis C we would be happy to do that for you today. Currently we recommend screening for hepatitis C virus (HCV ) infection in persons at high risk for infection, and to adults born between 1945 and 1965. Thank you for choosing the [facility] for your needs today! -Kortney Campbell N.P. , Please call if you need to cancel or change your appt. time. Thank you for choosing [facility] for your health care needs, and for consulting with [facility] today. You may receive a survey following [...] only take a few minutes to complete. Author: Kortney Campbell NP 11/19/2019 08:02 documented in this encounter Plan of Treatment Date Type Specialty Care Team Description 12/13/2019 Office Visit Urology Belle Joel MD [address] [place] [address] [phone] Name Type Priority Associated Diagnoses Order Schedule CT ABDOMEN WITHOUT AND Imaging Routine Dilated cbd, acquired Expected: WITH IV CONTRAST Abnormal US 11/19/2019, Expires: (ultrasound) of 11/18/2020 abdomen COMPREHENSIVE METABOLIC Lab Routine Dilated cbd, acquired Expected: 11/19/2019 PANEL Abnormal US (Approximate), (ultrasound) of Expires: 11/19/2020 abdomen Liver cyst Health Maintenance Due Date Last Done Comments DTaP/Tdap/Td Vaccines (1 - Tdap) 1976 DEPRESSION SCREENING 1977 HIV SCREENING 1980 DIABETES SCREENING 1983 HEPATITIS C SCREENING 2005 ZOSTER IMMUNIZATION SERIES (1 of 2015 2) INFLUENZA VACCINE (#1) 2019 LIPID DISORDER SCREENING 05/10/2020 05/10/2019 Colonoscopy 12/08/2026 12/08/2016 HEPATITIS A IMMUNIZATION SERIES Aged Out No longer eligible based on patient's age to complete this topic HPV IMMUNIZATION SERIES Aged Out No longer eligible based on patient's age to complete this topic MENINGOCOCCAL VACCINE IMM Aged Out No longer eligible based on patient's age to complete this topic PNEUMOCOCCAL 0-64 YRS Aged Out No longer eligible based on patient's age to complete this topic documented as of this encounter Results Not on filedocumented in this encounter Visit Diagnoses Diagnosis Dilated cbd, acquired Other specified disorders of biliary tract Abnormal US (ultrasound) of abdomen Nonspecific (abnormal) findings on radiological and other examination of abdominal area, including retroperitoneum Liver cyst Other specified disorders of liver documented in this encounter Insurance Payer Benefit Plan / Subscriber Effective Phone Address Type Group ID Dates [employer] xxxxxxxxx Effective [employer] for all Administration [facility] dates [facility] xxxxxxxxx Effective [facility] for all Administration [facility] dates documented as of this encounter
--- OUTSIDE RECORDS SUMMARY | 2019-12-20 15:41 | XMS REPORT | Summary of Care ---
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 Primary Care Provider Reason for Visit Reason Comments Follow Up uroflow, PVR Encounter Details Date Type Department Care Team Description 12/13/2019 Office Visit [facility] Marycruz, Cystic kidney disease, acquired (Primary Dx); [address] MD Belle Benign prostatic [place] [address] [address] [phone] [place] [address] [phone] Allergies Active Allergy Reactions Severity Noted Date Comments Bee Venom Unknown Reaction 05/28/2019 Duloxetine Hcl Unknown Reaction 05/10/2019 documented as of this encounter (statuses as of 12/13/2019) Medications Medication Sig Dispensed Refills Start Date End Date Status ciprofloxacin-dexametha Place 4 Drops 0 Active sone (CIPRODEX) 0.3-0.1 into both ears % Otic Suspension ONE TIME. clonazePAM (KLONOPIN) Take 0.5 mg by 0 Active 0.5 MG Oral Tab mouth TWICE DAILY. albuterol Take 2 Puffs by 0 Active (PROVENTIL,VENTOLIN) 90 inhalation FOUR mcg/act TIMES DAILY. budesonide-formoterol Take 2 INHL by 0 Active aerosol (SYMBICORT) inhalation TWICE 160-4.5 MCG/DOSE DAILY. Inhalation Aerosol carisoprodol (SOMA) 350 Take 350 mg by 0 Active MG Oral Tab mouth FOUR TIMES DAILY. gabapentin (NEURONTIN) Take 300 mg by 0 Active 300 MG Oral Cap mouth THREE TIMES DAILY. montelukast (SINGULAIR) Take 10 mg by 0 Active 10 MG Oral Tab mouth DAILY. pantoprazole (PROTONIX) Take 40 mg by 0 Active 40 MG Oral Tab EC mouth DAILY. pravastatin (PRAVACHOL) Take 60 mg by 0 Active 40 MG Oral Tab mouth DAILY. sertraline (ZOLOFT) 50 Take 150 mg by 0 Active MG Oral Tab mouth DAILY. Spacer/Aero-Holding by Does not apply 0 Active Chambers (AEROCHAMBER route. MINI CHAMBER) Does not apply Device amLodipine (NORVASC) 10 Take 10 mg by 0 Active MG Oral Tab mouth DAILY. Cholecalciferol Take 1 Cap by 0 Active (VITAMIN D-3) 1000 mouth DAILY. units Oral Cap cetirizine (ZYRTEC) 10 Take 10 mg by 0 Active MG Oral Tab mouth DAILY. fluticasone (FLONASE) Sutton 2 Sprays in 0 Active 50 MCG/ACT Nasal nose TWICE DAILY. Suspension naproxen (NAPROSYN) 250 Take 250 mg by 0 Active MG Oral Tab mouth TWO TIMES DAILY NEEDED. Polyethylene Glycol 17 g by Does not 0 Active 3350 Does not apply apply route Powder DAILY. tiotropium (SPIRIVA Take 18 mcg by 0 Active HANDIHALER) 18 MCG inhalation DAILY. Inhalation Cap Tamsulosin HCl (FLOMAX) Take 1 Cap by 30 Cap 3 11/01/2019 Active 0.4 MG Oral Cap mouth DAILY. documented as of this encounter (statuses as of 12/13/2019) Active Problems Problem Noted Date Sinusitis 05/28/2019 [...] as of this encounter (statuses as of 12/13/2019) Social History Tobacco Use Types Packs/Day Years Used Date Never Smoker Smokeless Tobacco: Current User Chew Sex Assigned at Date Recorded Not on file documented as of this encounter Last Filed Vital Signs Not on filedocumented in this encounter Progress Notes Belle Joel MD - 12/13/2019 9:45 AM EST PATIENT: Cristhian Kline : 1965 DATE OF SERVICE: 12/13/2019 REFERRING PRACTITIONER: Belle Joel PRIMARY CARE PROVIDER: Yadira Tran CHIEF COMPLAINT: Chief Complaint Patient presents with ? Follow Up uroflow, PVR Subjective HISTORY OF PRESENT ILLNESS: Cristhian Kline is a 54-y.o. male who presents for followup of [place] tract symptoms Since swithced to [facility] at last he is happy with micturition Had UROFLOW: Qmax: 11.8 Avg flow: 7.5 Voided volume: 288 cc AUA: 3 PVR: zero cc Results for CRISTHIAN KLINE ( ) as of 12/13/2019 09:38 Ref. Range 11/01/2019 10:55 PSA Latest Ref Range: <4.00 ng/mL 1.29 Current Outpatient Medications Medication Sig ? albuterol (PROVENTIL,VENTOLIN) 90 mcg/act Take 2 Puffs by inhalation FOUR TIMES DAILY. ? amLodipine (NORVASC) 10 MG Oral Tab Take 10 mg by mouth DAILY. ? budesonide-formoterol aerosol (SYMBICORT) 160-4.5 MCG/DOSE Inhalation Aerosol Take 2 INHL byinhalation TWICE DAILY. ? carisoprodol (SOMA) 350 MG Oral Tab Take 350 mg by mouth FOUR TIMES DAILY. ? cetirizine (ZYRTEC) 10 MG Oral Tab Take 10 mg by mouth DAILY. ? Cholecalciferol (VITAMIN D-3) 1000 units Oral Cap Take 1 Cap by mouth DAILY. ? ciprofloxacin-dexamethasone (CIPRODEX) 0.3-0.1 % Otic Suspension Place 4 Drops into both ears ONE TIME. ? clonazePAM (KLONOPIN) 0.5 MG Oral Tab Take 0.5 mg by mouth TWICE DAILY. ? fluticasone (FLONASE) 50 MCG/ACT Nasal Suspension Sutton 2 Sprays in nose TWICE DAILY. ? gabapentin (NEURONTIN) 300 MG Oral Cap Take 300 mg by mouth THREE TIMES DAILY. ? montelukast (SINGULAIR) 10 MG Oral Tab Take 10 mg by mouth DAILY. ? naproxen (NAPROSYN) 250 MG Oral Tab Take 250 mg by mouth TWO TIMES DAILY NEEDED. ? pantoprazole (PROTONIX) 40 MG Oral Tab EC Take 40 mg by mouth DAILY. ? Polyethylene Glycol 3350 Does not apply Powder 17 g by Does not apply route DAILY. ? pravastatin (PRAVACHOL) 40 MG Oral Tab Take 60 mg by mouth DAILY. ? sertraline (ZOLOFT) 50 MG Oral Tab Take 150 mg by mouth DAILY. ? Spacer/Aero-Holding Chambers (AEROCHAMBER MINI CHAMBER) Does not apply Device by Does not apply route. ? Tamsulosin HCl (FLOMAX) 0.4 MG Oral Cap Take 1 Cap by mouth DAILY. ? tiotropium (SPIRIVA HANDIHALER) 18 MCG Inhalation Cap Take 18 mcg by inhalation DAILY. No current facility-administered medications for this visit. Allergies Allergen Reactions ? Bee Venom Unknown Reaction ? Cymbalta [Duloxetine Hcl] Unknown Reaction REVIEW OF SYSTEMS: All remaining review of systems was negative except for as noted in the history of present illness/subjective. Objective PHYSICAL EXAMINATION: VITALS: There were no vitals taken for this visit. There is no height or weight on file to calculate BMI. GENERAL: healthy, well nourished, in no distress. LUNGS: good air entry bilaterally, no crackles or wheezes. HEART: regular rhythm, no murmurs, no gallops, no rubs. ABDOMEN: no palpable masses, organomegaly or hernias, no peritoneal, flank or bladder tenderness. GENITOURINARY: defer exam. LABORATORY DATA: Urine today in the office is na DIAGNOSTIC DATA: Diagnostic tests reviewed today: Labs,Urolflow and post void residual Plan IMPRESSION/PLAN: ICD-9-CM ICD-10-CM 1. Cystic kidney disease, acquired 593.2 N28.1 UROFLOW POST VOID RESIDUAL MEASUREMENT 2. Benign prostatic hyperplasia with urinary obstruction 600.01 N40.1 UROFLOW 599.69 N13.8 POST VOID RESIDUAL MEASUREMENT Continue Flomax Annual PSA with PCP Follow Up: Schedule follow-up here as needed if symptoms worsen.. Author: Belle Joel MD 12/13/2019 09:56 documented in this encounter Plan of Treatment Name Type Priority Associated Diagnoses Order Schedule UROFLOW Procedures Routine Benign prostatic hyperplasia with Ordered: 12/12 urinary obstruction Health Maintenance Due Date Last Done Comments [...] this topic documented as of this encounter Procedures Procedure Name Priority Date/Time Associated Diagnosis Comments POST VOID RESIDUAL Routine 12/13/2019 Cystic kidney disease, Results for this MEASUREMENT acquired procedure are in the Benign prostatic results section. hyperplasia with urinary obstruction UROFLOW Routine 12/13/2019 Cystic kidney disease, Results for this acquired procedure are in the Benign prostatic results section. hyperplasia with urinary obstruction documented in this encounter Results POST VOID RESIDUAL MEASUREMENT (12/13/2019) POST VOID RESIDUAL 0 ml [facility] POCT Performing Organization Address [facility] [place] Number [facility] [address] [place] [address] UROFLOW (12/13/2019) PEAK FLOW 11.8 ml/s [facility] POCT VOIDING TIME 39.7 sec [facility] POCT Flow Time 38.6 sec [facility] POCT TIME TO PEAK FLOW 13.4 sec [facility] POCT VOID VOLUME 288 ml [facility] POCT Performing Organization Address [facility] Phone Number [facility] [address] [place] [address] documented in this encounter Visit Diagnoses Diagnosis Cystic kidney disease, acquired Acquired cyst of kidney Benign prostatic hyperplasia with urinary obstruction documented in this encounter Insurance Payer Benefit Plan / Subscriber Effective Phone Address Type Group ID Dates [employer] V[employer] [id number] Effective Veterans ADMINISTRATION ADMINISTRATION for all [facility] dates [employer] [id number] Effective [facility] for [facility] dates documented as of this encounter
[2019-12-20 15:58] LABS: Influenza A Molecular POSITIVE (Negative)
[2019-12-20] MEDS ORDERED: Acetaminophen TAB* 325 MG PO ONE (16:17)
--- NOTE | 2019-12-20 16:17 | ED ---
Influenza-Like Illness - HPI Summary HPI Summary: Patient is a 54-year-old male who presents emergency department for dry cough, fever, headache and myalgias that started yesterday. Patient notes sick contacts in his family that were diagnosed with sinusitis. Patient denies any recent travel. Symptoms are mild in severity. Denies chest pain or difficulty breathing. No current modifying factors. - History of Current Complaint Chief Complaint: EDFluSymptoms Time Seen by Provider: 12/20/19 16:03 - Allergy/Home Medications Allergies/Adverse Reactions: Allergies Allergy/AdvReac Type Severity Reaction Status Date / Time Seasonal Allergy Allergy Eyes Uncoded 07/06/19 13:30 Itchy/Swollen/Red/Watery Home Medications: Home Medications Pravastatin (NF) [Pravachol (NF)] 60 mg PO DAILY 08/23/16 [History Confirmed 11/29] Carisoprodol TAB* [Soma TAB*] 350 mg PO QID 04/09/18 [History Confirmed ] amLODIPine TAB* [Norvasc 5 mg TAB*] 10 mg PO DAILY 04/09/18 [History Confirmed 10/11/19] Gabapentin 300 mg PO TID PRN 09/04/18 [History Confirmed 10/11/19] Cholecalciferol (Vitamin D3) [Vitamin D3] 1,000 unit PO DAILY 02/05/19 [History Confirmed 10/11/19] Terazosin CAP* [Hytrin CAP*] 3 mg PO DAILY 02/05/19 [History Confirmed 10/11/19] polyethylene glycoL 3350 [Polyethylene Glycol 3350] 1 packet PO BEDTIME [History Confirmed 10/11/19] Cetirizine* [ZyrTEC 10 MG TAB*] 10 mg PO DAILY 05/09/19 [History Confirmed 10/11] Tiotropium CAPSULE (NF) [Spiriva CAPSULE (NF)] 1 cap.inh INH DAILY 05/09/19 [ History Confirmed 10/11/19] Albuterol HFA INHALER* [Ventolin HFA Inhaler*] 2 puff INH QID PRN 09/02/19 [ History Confirmed 10/11/19] Budesonide/Formote 160/4.5(NF) [Symbicort 160/4.5 (NF)] 2 puff INH BID 09/02/19 [History Confirmed 10/11/19] Fluticasone NASAL SPRAY 50MCG* [Flonase NASAL SPRAY 50MCG*] 1 spray BOTH NARES BID 09/02/19 [History Confirmed 10/11/19] Montelukast Sodium TAB* [Singulair 10 MG TAB*] 10 mg PO DAILY 09/02/19 [History Confirmed 10/11/19] Naproxen [Naproxen 500 mg tab] 250 mg PO BID PRN 09/02/19 [History Confirmed 11/29] Pantoprazole TAB * [Protonix TAB*] 40 mg PO DAILY 09/02/19 [History Confirmed ] Quetiapine Fumarate [Seroquel 50 mg tab] 50 mg PO BEDTIME 09/02/19 [History Confirmed 10/11/19] Sertraline HCl [Zoloft] 200 mg PO DAILY 09/02/19 [History Confirmed 10/11/19] clonazePAM [Clonazepam] 0.25 mg PO BEDTIME 09/02/19 [History Confirmed 10/11/19] Simethicone [Gas Relief] 80 mg PO BID 10/10/19 [History Confirmed 10/11/19] hydrOXYzine HCL [Hydroxyzine HCl] 50 mg PO BID 10/10/19 [History Confirmed 10/11] Albuterol 2.5MG/3ML (0.083%)* [Ventolin 2.5 MG/3 ML NEB.COLTON*] 2.5 mg INH QID PRN 10/11/19 [History Confirmed 10/11/19] Erythromycin OPTH OINT* [Erythromycin 0.5% OPTH OINT*] 1 applic BOTH EYES Q6H [History Confirmed 10/11/19] Meclizine TAB* [Antivert 12.5 TAB*] 12.5 mg PO QID PRN 10/11/19 [History Confirmed 10/11/19] Vitamin E CAP* 200 unit PO DAILY 10/11/19 [History Confirmed 10/11/19] Oseltamivir CAP* [Tamiflu CAP*] 75 mg PO BID #10 cap 12/20/19 [Rx] Oseltamivir CAP* [Tamiflu CAP*] 75 mg PO BID #10 cap 12/20/19 [Rx] PMH/Surg Hx/FS Hx/Imm Hx Previously Healthy: Yes Endocrine/Hematology History: Denies: Hx Diabetes, Hx Thyroid Disease Cardiovascular History: Reports: Hx Angina, Hx Hypercholesterolemia - statins, Hx Hypertension - as of 2018, still on HTN medications, some resolution in 2013 Respiratory History: Reports: Hx Asthma, Hx Sleep Apnea - 2L O2 at bedtime/ overnight, sleep study to follow in 2018 Denies: Hx Chronic Obstructive Pulmonary Disease (COPD) GI History: Reports: Hx Gastroesophageal Reflux Disease, Other GI Disorders - torchous colon Denies: Hx Ulcer History: Reports: Hx Benign Prostatic Hyperplasia Musculoskeletal History: Reports: Hx Arthritis, Hx Scoliosis, Other Musculoskeletal History - DDD cervical and thoracic spine Sensory History: Reports: Hx Contacts or Glasses, Hx Hearing Problem - Left Ear Denies: Hx Hearing Aid Opthamlomology History: Reports: Hx Contacts or Glasses Neurological History: Reports: Other Neuro Impairments/Disorders - HX OF DDD, pain clinic pt Psychiatric History: Reports: Hx Anxiety, Hx Depression, Hx Post Traumatic Stress Disorder Denies: Hx Eating Disorder, Hx of Violent Episodes Against Others - Cancer History Hx Chemotherapy: No Hx Radiation Therapy: No - Surgical History Surgery Procedure, Year, and Place: Rhinoplasty. Tonsillectomy. [place] teeth Infectious Disease History: No Infectious Disease History: Denies: Hx Clostridium Difficile, Hx Hepatitis, Hx Human Immunodeficiency Virus (HIV), Hx of Known/Suspected MRSA, Hx Shingles, Hx Tuberculosis, Hx Known/ Suspected VRE, Hx Known/Suspected VRSA, History Other Infectious Disease, Traveled Outside the [place] in Last 30 Days - Family History Known Family History: Positive: Cardiac Disease - father multiple OR, Other - cancer, Non-Contributory - Social History Occupation: Disabled Lives: With Family Alcohol Use: None Hx Substance Use: No Substance Use Type: Reports: None Hx Tobacco Use: Yes Smoking Status (MU): Never Smoked Tobacco Type: Smokeless Tobacco Amount Used/How Often: 1/2 tin per day Review of Systems Positive: Fever, Chills Eyes: Negative Positive: Nasal Discharge Cardiovascular: Negative Negative: Palpitations, Chest Pain Positive: Cough. Negative: Shortness Of Breath Gastrointestinal: Negative Negative: Abdominal Pain, Vomiting, Diarrhea Positive: Myalgia Skin: Negative Positive: Headache All Other Systems Reviewed And Are Negative: Yes Physical Exam Triage Information Reviewed: Yes Vital Signs On Initial Exam: Initial Vitals Temp Pulse Resp BP Pulse Ox 100.1 F 101 20 142/94 96 12/20/19 15:22 12/20/19 15:22 12/20/19 15:22 12/20/19 15:22 12/20/19 15:22 Vital Signs Reviewed: Yes Appearance: Positive: Well-Appearing - Patient lying in bed, appears to feel unwell but nontoxic. Skin: Positive: Warm, Dry Head/Face: Positive: Normal Head/Face Inspection Eyes: Positive: Normal, EOMI, TARA, Conjunctiva Clear ENT: Positive: Pharynx normal, TMs normal. Negative: Tonsillar swelling, Tonsillar exudate Neck: Positive: Supple, Nontender. Negative: Nuchal Rigidity Respiratory/Lung Sounds: Positive: Clear to Auscultation, Breath Sounds Present. Negative: Rales, Rhonchi, Wheezes Cardiovascular: Positive: Normal, RRR Neurological: Positive: Normal, CN Intact II-III Psychiatric: Positive: Affect/Mood Appropriate Procedures - Sedation Patient Received Moderate/Deep Sedation with Procedure: No Diagnostics - Vital Signs Vital Signs Temp Pulse Resp BP Pulse Ox 12/20/19 15:22 100.1 F 101 20 142/94 96 - Laboratory Lab Results: Lab Results 12/20/19 Range/Units 15:25 Influenza A (Rapid) Positive H (Negative) Influenza B (Rapid) Not Reportable Lab Statement: Any lab studies that have been ordered have been reviewed, and results considered in the medical decision making process. Flu Symptom Course/Dx - Course Course Of Treatment: Positive for influenza. Low-grade fever in the ER. Given Tylenol. Nontoxic appearing. Tamiflu prescribed since the symptoms started yesterday. Discussed supportive care with patient. He will increase fluids and rest. Tylenol or Motrin for pain and fever as directed. Close follow-up with PCP if symptoms persist or return to the ER symptoms change or worsen. Patient understands and agrees with plan. Discharged home stable. - Diagnoses Differential Diagnosis/HQI/PQRI: Positive: Influenza, Pneumonia, Upper Respiratory Infection Provider Diagnoses: Influenza Discharge ED - Sign-Out/Discharge Documenting (check all that apply): Patient Departure - Discharge Plan Condition: Good Disposition: HOME Prescriptions: Oseltamivir CAP* [Tamiflu CAP*] 75 mg PO BID #10 cap Oseltamivir CAP* [Tamiflu CAP*] 75 mg PO BID #10 cap Patient Education Materials: Influenza (ED) Referrals: Thang Diaz MD [Primary Care Provider] - Additional Instructions: Follow up with PCP within one week if symptoms persist Tamiflu as directed Can rotate tylenol and motrin every 3 hours for pain and fever control Increase fluids and rest Return to ER if symptoms change or worsen - Billing Disposition and Condition Condition: GOOD Disposition: Home - Attestation Statements Provider Attestation: I was available for consult. This patient was seen by the UL. The patient was not presented to, seen by, or examined by me. Naun Bustillo MD
[2019-12-20 19:44] VITALS: BP 138/74
== END 2019-12-20 16:30 | disposition home or self-care (01) ==
LOC: ED 15:19
DX: J11.1 Influenza due to unidentified influenza virus with other respiratory manifestations (principal); R50.9 Fever, unspecified; R51 Headache; E78.00 Pure hypercholesterolemia, unspecified; I10 Essential (primary) hypertension; G47.30 Sleep apnea, unspecified; K21.9 Gastro-esophageal reflux disease without esophagitis; J45.909 Unspecified asthma, uncomplicated; F41.9 Anxiety disorder, unspecified; F32.9 Major depressive disorder, single episode, unspecified; Z79.899 Other long term (current) drug therapy
CPT/HCPCS: 99283; A9270-GY